=== PATIENT | male | born 1965 | race Caucasian/White ===

== ENCOUNTER 2019-01-16 20:01 | Inpatient (IN) | payer BC ==
[~2019-01-16] VITALS: Ht 188 cm; Wt 154.6 kg
[2019-01-16] MEDS ORDERED: methylPREDNISolone sod succ 125mg/2ml vial IV ONE (21:00)
[2019-01-16] MEDS ORDERED: ipratropium/albuterol 3ml nebule NEB ONE (21:00)
[2019-01-16 21:07] LABS: BASOPHILS % (AUTO) 0.5 % (0-1); EOSINOPHILS # (AUTO) 0.1 X10'3 (0-0.9); EOSINOPHILS % (AUTO) 2.8 % (0-6); HEMATOCRIT 49.3 % (42.0-52.0); HEMOGLOBIN 16.7 g/dl (14.0-17.9); LYMPHOCYTES # (AUTO) 1.1 X10'3 (1.1-4.8); LYMPHOCYTES % (AUTO) 21.7 % (21-51); MEAN CORPUSCULAR HEMOGLOBIN 31.8 PG (27.0-31.0); MEAN CORPUSCULAR HGB CONC 33.9 g/dL (33.0-36.5); MEAN CORPUSCULAR VOLUME 93.7 FL (78-98); MONOCYTES # (AUTO) 0.9 X10'3 (0-0.9); MONOCYTES % (AUTO) 17.5 % (2-12); NEUTROPHILS # (AUTO) 2.9 X10'3 (1.8-7.7); NEUTROPHILS % (AUTO) 57.5 % (42-75); PLATELET COUNT 178 X10'3 (140-440); RED BLOOD COUNT 5.26 X10'6 (4.70-6.10); RED CELL DISTRIBUTION WIDTH 13.3 % (11.5-14.5); WHITE BLOOD COUNT 5.1 X10'3 (4.5-11.0)
[2019-01-16 21:18] LABS: ALANINE AMINOTRANSFERASE 28 U/L (12-78); ALBUMIN 3.6 G/DL (3.4-5.0); ALBUMIN/GLOBULIN RATIO 0.9 (1.1-1.5); ALKALINE PHOSPHATASE 110 IU/L (46-116); ANION GAP 7 (8-16); ASPARTATE AMINO TRANSFERASE 27 U/L (10-37); BILIRUBIN,TOTAL 0.4 MG/DL (0.1-1.0); BLOOD UREA NITROGEN 15 MG/DL (7-18); BUN/CREATININE RATIO 13.9 (5.4-32.0); CALCIUM 8.8 MG/DL (8.5-10.1); CHLORIDE 105 MMOL/L (99-107); CREATININE 1.08 MG/DL (0.60-1.10); GLUCOSE 134 MG/DL (70-104); POTASSIUM 4.1 MMOL/L (3.5-5.1); SODIUM 140 MMOL/L (135-145); TOTAL CARBON DIOXIDE 28.5 MMOL/L (24-32); TOTAL PROTEIN 7.7 G/DL (6.4-8.2); eGFR 71 ML/MIN
[2019-01-16 21:22] LABS: TROPONIN I < 0.04 NG/ML (0.0-0.05)
[2019-01-16 21:25] LABS: PARTIAL THROMBOPLASTIN TIME 33 SECONDS (22-32); PROTHROMBIN TIME 10.3 SECONDS (9.0-12.0)
--- NOTE | 2019-01-16 21:30 | NUR ---
S/P neb treatment and he sounds clear. He is conversing easily now.
[2019-01-16] MEDS ORDERED: METF500T PO (21:58)
[2019-01-16] MEDS ORDERED: THYR240T PO (21:58)
[2019-01-16] MEDS ORDERED: GLIP5TAB13 PO (21:58)
[2019-01-16] MEDS ORDERED: LISI-604 PO (22:00)
[2019-01-16] MEDS ORDERED: ALBU8.5H8 INH (22:00)
[2019-01-16] MEDS ORDERED: magnesium Cl slow-release 64mg tablet PO PRN (22:30)
[2019-01-16] MEDS ORDERED: magnesium hydroxide 30ml (MOM) UD suspension PO PRN (22:30)
[2019-01-16] MEDS ORDERED: dextrose ORAL solution 15 GM/59 ML bottle PO PRN ×2 (22:30)
[2019-01-16] MEDS ORDERED: glucagon, human recombinant 1mg kit SUBCUT PRN (22:30)
[2019-01-16] MEDS ORDERED: ondansetron/PF 4mg/2ml inj IV PRN (22:30)
[2019-01-16] MEDS ORDERED: magnesium 4gm in 100ml NS 100 ML IV PRN (22:30)
[2019-01-16] MEDS ORDERED: dextrose 50%-water 50ml dispensing syringe IV PRN ×2 (22:30)
[2019-01-16] MEDS ORDERED: acetaminophen 325mg tablet PO PRN ×2 (22:30)
[2019-01-16] MEDS ORDERED: magnesium 2GM in 50ml NS 50 ML IV PRN (22:30)
[2019-01-16] MEDS ORDERED: mag hydrox/Alum hydrox/simeth 30ml oral suspension PO PRN (22:30)
[2019-01-16] MEDS ORDERED: potassium Cl 40MEQ/NS 500ml 500 ML IV PRN ×2 (22:30)
[2019-01-16] MEDS ORDERED: MESSAGE TO PHARMACY PO ONE (22:30)
[2019-01-16] MEDS ORDERED: potassium Cl 20 mEq SR tablet PO PRN ×2 (22:30)
[2019-01-16] MEDS ORDERED: ipratropium/albuterol 3ml nebule NEB PRN (22:30)
[2019-01-16 23:15] LABS: HEMOGLOBIN A1C 6.3 % (4.5-6.2)
[2019-01-16] MEDS: ipratropium/albuterol 3ml nebule NEB SCH (23:44)
[2019-01-17] MEDS: methylPREDNISolone sod succ/PF 40mg inj. IV SCH ×2 (00:09→08:32)
--- NOTE | 2019-01-17 00:09 | NUR ---
I gave the pt food to eat and now he is up to the br.
[2019-01-17 00:51] LABS: CLARITY,URINE CLEAR (Clear); COLOR,URINE YELLOW (Yellow); GLUCOSE, URINE NEGATIVE (Neg); KETONES,URINE TRACE mg/dl (Neg); LEUKOCYTE ESTERASE ,URINE NEGATIVE (Neg); NITRITES, URINE NEGATIVE (Neg); OCCULT BLOOD,URINE SMALL (Neg); PROTEIN,URINE 100 mg/dl (Neg); UA COLLECTION TYPE VOIDED
[2019-01-17 01:01] LABS: BACTERIA,URINE FEW /HPF (Neg); SQUAMOUS EPITHELIAL CELL,UR FEW /LPF (FEW); WBC,URINE 0-4 /HPF (0-4)
--- NOTE | 2019-01-17 02:18 | NUR ---
pt has been moved from rm9 to rm 12 - he desires to rest. lights dimmed, curtain drawn and door ajar. pt has call light in reach. verbalized understanding of use of call light
--- NOTE | 2019-01-17 04:00 | NUR ---
pt continues to rest at this time
[2019-01-17] MEDS: ipratropium/albuterol 3ml nebule NEB SCH ×6 (04:27→23:28)
--- NOTE | 2019-01-17 04:50 | NUR ---
PT AWAKE, CONVERSING WITH RT - NO NEEDS AT THIS TIME. VITALS UPDATED. NO ACUTE DISTRESS NOTED.
--- NOTE | 2019-01-17 07:12 | NUR ---
Patient in room ED 9. I have received report from Sabina RN and had the opportunity to ask questions and assume patient care.
[2019-01-17 07:50] VITALS: BP 140/83
[2019-01-17] MEDS ORDERED: azithromycin/NS 500mg/250ml 250 ML IV SCH (08:00)
[2019-01-17] MEDS: K and/or MAG REPLACEMENT MC SCH (08:00)
[2019-01-17] MEDS: enoxaparin 40mg/0.4ml syringe SQ SCH (08:00)
[2019-01-17] MEDS: thyroid, pork 30mg tablet PO SCH (08:32)
[2019-01-17] MEDS: lisinopril 5mg tablet PO SCH ×2 (08:32→09:35)
[2019-01-17] MEDS ORDERED: GLIM2TAB2 PO (10:11)
[2019-01-17] MEDS ORDERED: GUSE100S SUBCUT (10:11)
[2019-01-17] MEDS ORDERED: BENZ200C59 PO (10:11)
[2019-01-17] MEDS ORDERED: METF-438 PO (10:11)
[2019-01-17] MEDS ORDERED: AZIT-21 PO (10:11)
[2019-01-17] MEDS ORDERED: ALBU17AE26 INH (10:11)
--- NOTE | 2019-01-17 10:53 | NUR ---
Insulin never received from pharmacy, message was sent earlier. Pharmacy to bring up. Will recheck BS for lunch, unable to cover morning BS due to not having humalog available in time.
[2019-01-17 11:22] LABS: BASOPHILS % (AUTO) 0.3 % (0-1); EOSINOPHILS % (AUTO) 0 % (0-6); HEMATOCRIT 46.9 % (42.0-52.0); HEMOGLOBIN 16.1 g/dl (14.0-17.9); LYMPHOCYTES # (AUTO) 0.5 X10'3 (1.1-4.8); LYMPHOCYTES % (AUTO) 8.5 % (21-51); MEAN CORPUSCULAR HEMOGLOBIN 32.1 PG (27.0-31.0); MEAN CORPUSCULAR HGB CONC 34.4 g/dL (33.0-36.5); MEAN CORPUSCULAR VOLUME 93.3 FL (78-98); MEAN PLATELET VOLUME 7.9 FL (7.4-10.4); MONOCYTES # (AUTO) 0.2 X10'3 (0-0.9); MONOCYTES % (AUTO) 2.5 % (2-12); NEUTROPHILS # (AUTO) 5.4 X10'3 (1.8-7.7); NEUTROPHILS % (AUTO) 88.7 % (42-75); PLATELET COUNT 173 X10'3 (140-440); RED BLOOD COUNT 5.03 X10'6 (4.70-6.10); RED CELL DISTRIBUTION WIDTH 13.1 % (11.5-14.5); WHITE BLOOD COUNT 6.1 X10'3 (4.5-11.0)
[2019-01-17 11:32] LABS: ALBUMIN 3.4 G/DL (3.4-5.0); ANION GAP 11 (8-16); BLOOD UREA NITROGEN 21 MG/DL (7-18); BUN/CREATININE RATIO 17.1 (5.4-32.0); CALCIUM 8.5 MG/DL (8.5-10.1); CHLORIDE 103 MMOL/L (99-107); CREATININE 1.23 MG/DL (0.60-1.10); GLUCOSE 282 MG/DL (70-104); MAGNESIUM 2.1 MG/DL (1.5-2.4); POTASSIUM 4.4 MMOL/L (3.5-5.1); SODIUM 139 MMOL/L (135-145); TOTAL CARBON DIOXIDE 24.9 MMOL/L (24-32); eGFR 61 ML/MIN
[2019-01-17] MEDS ORDERED: predniSONE 20 mg tablet PO ONE (11:36)
[2019-01-17 11:54] VITALS: BP 138/82
[2019-01-17] MEDS: insulin Lispro (HumaLOG) vial - multi-dose SQ SCH ×3 (13:17→23:28)
--- NOTE | 2019-01-17 18:22 | NUR ---
Problems reprioritized. Patient report given, questions answered & plan of care reviewed with Pat RN.
[2019-01-17 19:00] VITALS: BP 119/67
--- NOTE | 2019-01-17 19:00 | NUR ---
pt obese; denies edema Addendum: 01/18/19 at 0305 by Juli Seaman RN Amended: Links added.
[2019-01-17] MEDS ORDERED: insulin glargine (Lantus) pen - multi-dose SQ SCH (21:00)
[2019-01-18] VITALS: BP 129/59
[2019-01-18] MEDS: ipratropium/albuterol 3ml nebule NEB SCH ×2 (03:11→07:39)
[2019-01-18 05:55] LABS: BASOPHILS % (AUTO) 0.1 % (0-1); EOSINOPHILS % (AUTO) 0 % (0-6); HEMATOCRIT 43.7 % (42.0-52.0); HEMOGLOBIN 14.9 g/dl (14.0-17.9); LYMPHOCYTES # (AUTO) 1.1 X10'3 (1.1-4.8); LYMPHOCYTES % (AUTO) 13.2 % (21-51); MEAN CORPUSCULAR HGB CONC 34.2 g/dL (33.0-36.5); MEAN CORPUSCULAR VOLUME 93.4 FL (78-98); MEAN PLATELET VOLUME 8.5 FL (7.4-10.4); MONOCYTES # (AUTO) 0.8 X10'3 (0-0.9); MONOCYTES % (AUTO) 9.7 % (2-12); NEUTROPHILS # (AUTO) 6.4 X10'3 (1.8-7.7); PLATELET COUNT 168 X10'3 (140-440); RED BLOOD COUNT 4.67 X10'6 (4.70-6.10); RED CELL DISTRIBUTION WIDTH 13.1 % (11.5-14.5); WHITE BLOOD COUNT 8.3 X10'3 (4.5-11.0)
[2019-01-18 05:56] LABS: ALBUMIN 3.3 G/DL (3.4-5.0); ANION GAP 10 (8-16); BLOOD UREA NITROGEN 34 MG/DL (7-18); BUN/CREATININE RATIO 20.7 (5.4-32.0); CALCIUM 8.6 MG/DL (8.5-10.1); CHLORIDE 105 MMOL/L (99-107); CREATININE 1.64 MG/DL (0.60-1.10); GLUCOSE 214 MG/DL (70-104); MAGNESIUM 2.2 MG/DL (1.5-2.4); SODIUM 141 MMOL/L (135-145); TOTAL CARBON DIOXIDE 25.9 MMOL/L (24-32); eGFR 44 ML/MIN
--- NOTE | 2019-01-18 06:32 | NUR ---
Patient in room [facility]. I have received report from Pat RN and had the opportunity to ask questions and assume patient care.
[2019-01-18 07:13] VITALS: BP 131/74
[2019-01-18] MEDS: lisinopril 5mg tablet PO SCH (07:33)
[2019-01-18] MEDS: K and/or MAG REPLACEMENT MC SCH (07:33)
[2019-01-18] MEDS: thyroid, pork 30mg tablet PO SCH (07:33)
[2019-01-18] MEDS: enoxaparin 40mg/0.4ml syringe SQ SCH (07:33)
[2019-01-18] MEDS ORDERED: predniSONE 20 mg tablet PO SCH (08:00)
[2019-01-18] MEDS ORDERED: levoFLOXACIN-Levaquin 500mg/D5 100 ML IV SCH (08:00)
[2019-01-18] MEDS: insulin Lispro (HumaLOG) vial - multi-dose SQ SCH (08:34)
[2019-01-18 10:59] VITALS: BP 121/66
[2019-01-18] MEDS ORDERED: levoFLOXACIN 500mg tablet PO SCH (11:00)
[2019-01-18] MEDS ORDERED: PRED20TA PO (11:03)
[2019-01-18] MEDS ORDERED: VARE0.5T PO (11:03)
[2019-01-18] MEDS ORDERED: LEVO500T89 PO (11:03)
--- NOTE | 2019-01-18 11:36 | NUR ---
Patient discharge paperwork gone over with patient and signed. Patient understands to followup with PCP. Rx called in to [facility] [address]. Pt refused to have BS checked before discharge. Family to take pt home. Student walked pt to front lobby.
== END 2019-01-18 11:47 | disposition home or self-care (01) | DRG 202 ==
LOC: ER 20:02 → ED HOLD 22:29 → EDBEDREQ 01-17 05:02 → SUR 3N 01-17 07:18 → CMPBEDREQ 01-17 19:47
PROVIDERS: ADMIT Hospitalist; ATTEND Family Medicine
PROC: 5A09357 Assistance with Respiratory Ventilation, Less than 24 Consecutive Hours, Continuous Positive Airway Pressure (ICD-10-PCS; principal; 2019-01-17)
PROC: 5A09357 Assistance with Respiratory Ventilation, Less than 24 Consecutive Hours, Continuous Positive Airway Pressure (ICD-10-PCS; 2019-01-18)
DX: J20.9 Acute bronchitis, unspecified (principal); J44.1 Chronic obstructive pulmonary disease with (acute) exacerbation; J44.0 Chronic obstructive pulmonary disease with (acute) lower respiratory infection; I10 Essential (primary) hypertension; L40.9 Psoriasis, unspecified; M19.90 Unspecified osteoarthritis, unspecified site; G47.30 Sleep apnea, unspecified; E03.9 Hypothyroidism, unspecified; E11.9 Type 2 diabetes mellitus without complications; F17.200 Nicotine dependence, unspecified, uncomplicated; Z82.5 Family history of asthma and other chronic lower respiratory diseases; Z79.899 Other long term (current) drug therapy; Z79.84 Long term (current) use of oral hypoglycemic drugs; Z71.6 Tobacco abuse counseling
CPT/HCPCS: 36415; 71045; 80048; 80053; 81001; 82948; 83036; 83605; 83735; 84145; 84484; 85025; 85610; 85730; 87040; 87070; 93005; 94640; 94760; 99285; G0378; J0456; J1650; J1815; J2920; J2930; J7512

== ENCOUNTER 2019-02-19 08:26 | Inpatient (IN) | payer BC ==
[~2019-02-19] VITALS: Ht 188 cm; Wt 154.0 kg
[~2019-02-19 08:26] MED LIST: ALBU17AE26 INH; BENZ200C59 PO; GLIM2TAB2 PO; GUSE100S SUBCUT; LISI-604 PO; METF-438 PO; THYR240T PO; VARE0.5T PO
[2019-02-19] MEDS ORDERED: normal saline 1000ML IV soln IV ONE (09:30)
[2019-02-19 10:04] LABS: BASOPHILS % (AUTO) 0.2 % (0-1); EOSINOPHILS # (AUTO) 0.1 X10'3 (0-0.9); EOSINOPHILS % (AUTO) 0.8 % (0-6); HEMATOCRIT 43.6 % (42.0-52.0); HEMOGLOBIN 14.5 g/dl (14.0-17.9); LYMPHOCYTES # (AUTO) 1.1 X10'3 (1.1-4.8); LYMPHOCYTES % (AUTO) 7.4 % (21-51); MEAN CORPUSCULAR HEMOGLOBIN 31.4 PG (27.0-31.0); MEAN CORPUSCULAR HGB CONC 33.2 g/dL (33.0-36.5); MEAN CORPUSCULAR VOLUME 94.6 FL (78-98); MEAN PLATELET VOLUME 7.8 FL (7.4-10.4); MONOCYTES # (AUTO) 0.8 X10'3 (0-0.9); MONOCYTES % (AUTO) 5.2 % (2-12); NEUTROPHILS # (AUTO) 12.6 X10'3 (1.8-7.7); NEUTROPHILS % (AUTO) 86.4 % (42-75); PLATELET COUNT 167 X10'3 (140-440); RED BLOOD COUNT 4.61 X10'6 (4.70-6.10); RED CELL DISTRIBUTION WIDTH 13.4 % (11.5-14.5); WHITE BLOOD COUNT 14.6 X10'3 (4.5-11.0)
[2019-02-19 10:14] LABS: ALANINE AMINOTRANSFERASE 18 U/L (12-78); ALBUMIN 2.7 G/DL (3.4-5.0); ALBUMIN/GLOBULIN RATIO 0.8 (1.1-1.5); ALKALINE PHOSPHATASE 93 IU/L (46-116); ANION GAP 5 (8-16); ASPARTATE AMINO TRANSFERASE 8 U/L (10-37); BILIRUBIN,TOTAL 0.7 MG/DL (0.1-1.0); BLOOD UREA NITROGEN 19 MG/DL (7-18); BUN/CREATININE RATIO 14.3 (5.4-32.0); CALCIUM 8.2 MG/DL (8.5-10.1); CHLORIDE 100 MMOL/L (99-107); CREATININE 1.33 MG/DL (0.60-1.10); GLUCOSE 321 MG/DL (70-104); POTASSIUM 3.7 MMOL/L (3.5-5.1); SODIUM 134 MMOL/L (135-145); TOTAL CARBON DIOXIDE 29.1 MMOL/L (24-32); TOTAL PROTEIN 5.9 G/DL (6.4-8.2); eGFR 56 ML/MIN
[2019-02-19] MEDS ORDERED: morphine 4 MG/ML inj SYRINge IV ONE (10:15)
[2019-02-19] MEDS ORDERED: NAPR220T67 PO (10:34)
[2019-02-19] MEDS ORDERED: TRAZ-219 PO (10:34)
[2019-02-19] MEDS ORDERED: FAMO20TA8 PO (10:34)
[2019-02-19] MEDS ORDERED: DOXY-257 PO (10:34)
[2019-02-19] MEDS ORDERED: CLIN300C56 PO (10:34)
[2019-02-19] MEDS ORDERED: SULF-18 PO (10:35)
[2019-02-19] MEDS ORDERED: iohexol 300mg/ml 100ml inj. ONE (10:44)
[2019-02-19 10:50] LABS: CLARITY,URINE CLEAR (Clear); COLOR,URINE YELLOW (Yellow); GLUCOSE, URINE >=1000 mg/dl (Neg); KETONES,URINE TRACE mg/dl (Neg); LEUKOCYTE ESTERASE ,URINE NEGATIVE (Neg); NITRITES, URINE NEGATIVE (Neg); OCCULT BLOOD,URINE TRACE-INTACT (Neg); PROTEIN,URINE 100 mg/dl (Neg)
[2019-02-19 10:51] LABS: UA COLLECTION TYPE VOIDED
[2019-02-19 10:55] LABS: HYALINE CASTS 0-3 /LPF (NEGATIVE); MUCUS STRANDS MODERATE /LPF (Neg); SQUAMOUS EPITHELIAL CELL,UR MODERATE /LPF (FEW)
[2019-02-19 11:02] LABS: TRANSITIONAL EPI CELLS,URINE FEW /HPF
[2019-02-19 11:03] LABS: RBC,URINE 0-2 /HPF (0-2); WBC,URINE 0-4 /HPF (0-4)
[2019-02-19 11:04] LABS: BACTERIA,URINE NONE SEEN /HPF (Neg)
[2019-02-19] MEDS ORDERED: piperacillin/tazo 3.375gm/50ml 50 ML IV ONE ×2 (12:10→13:00)
[2019-02-19] MEDS ORDERED: vancomycin/NS 1 GM ADD-VANTAGE 250 ML IV ONE (12:10)
[2019-02-19] MEDS ORDERED: potassium Cl 20 mEq SR tablet PO PRN ×2 (13:15)
[2019-02-19] MEDS ORDERED: ondansetron/PF 4mg/2ml inj IV PRN (13:15)
[2019-02-19] MEDS ORDERED: magnesium Cl slow-release 64mg tablet PO PRN (13:15)
[2019-02-19] MEDS ORDERED: glucagon, human recombinant 1mg kit SUBCUT PRN (13:15)
[2019-02-19] MEDS ORDERED: magnesium 4gm in 100ml NS 100 ML IV PRN (13:15)
[2019-02-19] MEDS ORDERED: MESSAGE TO PHARMACY PO ONE (13:15)
[2019-02-19] MEDS ORDERED: dextrose 50%-water 50ml dispensing syringe IV PRN ×2 (13:15)
[2019-02-19] MEDS ORDERED: acetaminophen 325mg tablet PO PRN ×2 (13:15)
[2019-02-19] MEDS ORDERED: potassium Cl 40MEQ/NS 500ml 500 ML IV PRN ×2 (13:15)
[2019-02-19] MEDS ORDERED: normal saline 1000ml 1,000 ML IV ONE (13:15)
[2019-02-19] MEDS ORDERED: magnesium 2GM in 50ml NS 50 ML IV PRN (13:15)
[2019-02-19] MEDS ORDERED: HYDROcodone/acetaminophen 5mg/325mg tablet PO PRN (13:15)
[2019-02-19] MEDS ORDERED: dextrose ORAL solution 15 GM/59 ML bottle PO PRN ×2 (13:15)
[2019-02-19] MEDS ORDERED: morphine 4 MG/ML inj SYRINge IV PRN (13:15)
[2019-02-19] MEDS ORDERED: morphine 4 MG/ML inj SYRINge IM ONE (13:35)
[2019-02-19] MEDS: piperacillin/tazo 3.375gm/50ml 50 ML IV SCH ×2 (16:43→20:03)
[2019-02-19] MEDS ORDERED: naproxen sodium 220mg tablet PO PRN (18:30)
[2019-02-19] MEDS ORDERED: CLIN150C2 PO (19:40)
[2019-02-19] MEDS ORDERED: GLIM2TAB2 PO (19:43)
[2019-02-19] MEDS ORDERED: METF-438 PO (19:45)
--- NOTE | 2019-02-19 19:52 | NUR ---
PATIENT NOT DUE FOR TREMFYA INJECTION TILL NEXT MONTH
[2019-02-19] MEDS: varenicline tartrate 0.5mg tablet PO SCH (20:00)
[2019-02-19] MEDS: lactobacillus rhamnosus 10,000 MMU CELLS/CAPSULE PO SCH (20:00)
[2019-02-19] MEDS: benzonatate 100mg capsule PO SCH (20:03)
[2019-02-19] MEDS: famotidine 20mg tablet PO SCH (20:04)
--- NOTE | 2019-02-19 20:12 | NUR ---
patient moved to room 11 from room 17 with all belongings; friend leslie took his medications home
[2019-02-19] MEDS: HYDROcodone/acetaminophen 10/325mg tab PO PRN (20:22)
[2019-02-19] MEDS: insulin glargine (Lantus) pen - multi-dose SQ SCH (20:57)
--- NOTE | 2019-02-19 23:00 | NUR ---
Received report from Rufino in the ED. Pt arrived on the unit at 2300 by wheelchair, connected to his IV with Vanco running. Pt was placed on contact isolation due to history of MRSA, necrotizing fascitis and gangrene. Pt was darted, swabbed, meds reconciled and assisted with hooking up his CPAP machine. Pt has no signs of distress, will continue to monitor.
[2019-02-19] MEDS: mag hydrox/Alum hydrox/simeth 30ml oral suspension PO PRN (23:32)
[2019-02-20] VITALS (12 sets, daily range): BP systolic 107–155; BP diastolic 52–83
[2019-02-20] MEDS: HYDROcodone/acetaminophen 10/325mg tab PO PRN ×4 (00:06→19:59)
[2019-02-20 06:01] LABS: BASOPHILS # (AUTO) 0.1 X10'3 (0-0.2); BASOPHILS % (AUTO) 0.4 % (0-1); EOSINOPHILS # (AUTO) 0.2 X10'3 (0-0.9); EOSINOPHILS % (AUTO) 0.9 % (0-6); HEMATOCRIT 38.2 % (42.0-52.0); HEMOGLOBIN 12.9 g/dl (14.0-17.9); LYMPHOCYTES # (AUTO) 0.9 X10'3 (1.1-4.8); LYMPHOCYTES % (AUTO) 5.2 % (21-51); MEAN CORPUSCULAR HEMOGLOBIN 31.9 PG (27.0-31.0); MEAN CORPUSCULAR HGB CONC 33.8 g/dL (33.0-36.5); MEAN CORPUSCULAR VOLUME 94.2 FL (78-98); MEAN PLATELET VOLUME 7.9 FL (7.4-10.4); MONOCYTES # (AUTO) 0.8 X10'3 (0-0.9); MONOCYTES % (AUTO) 4.6 % (2-12); NEUTROPHILS # (AUTO) 14.7 X10'3 (1.8-7.7); NEUTROPHILS % (AUTO) 88.9 % (42-75); PLATELET COUNT 145 X10'3 (140-440); RED BLOOD COUNT 4.06 X10'6 (4.70-6.10); RED CELL DISTRIBUTION WIDTH 13.2 % (11.5-14.5); WHITE BLOOD COUNT 16.5 X10'3 (4.5-11.0)
[2019-02-20 06:12] LABS: ALBUMIN 2.1 G/DL (3.4-5.0); ANION GAP 7 (8-16); BLOOD UREA NITROGEN 16 MG/DL (7-18); BUN/CREATININE RATIO 13.9 (5.4-32.0); CALCIUM 7.8 MG/DL (8.5-10.1); CHLORIDE 103 MMOL/L (99-107); CREATININE 1.15 MG/DL (0.60-1.10); GLUCOSE 293 MG/DL (70-104); MAGNESIUM 1.5 MG/DL (1.5-2.4); POTASSIUM 3.7 MMOL/L (3.5-5.1); SODIUM 137 MMOL/L (135-145); TOTAL CARBON DIOXIDE 26.9 MMOL/L (24-32); eGFR 66 ML/MIN
--- NOTE | 2019-02-20 06:28 | NUR ---
Problems reprioritized. Patient report given, questions answered & plan of care reviewed with Tiffanie MCNEAL.
--- NOTE | 2019-02-20 06:30 | NUR ---
Patient in room [facility]. I have received report from FREDIS Beach and had the opportunity to ask questions and assume patient care. patient resting comfortably at this time. Call light and items of frequent use in reach of patient.
[2019-02-20] MEDS ORDERED: glimepiride 1 MG tablet PO SCH (07:30)
[2019-02-20] MEDS: K and/or MAG REPLACEMENT MC SCH (08:00)
[2019-02-20] MEDS: varenicline tartrate 0.5mg tablet PO SCH ×2 (08:00→22:12)
[2019-02-20] MEDS: enoxaparin 40mg/0.4ml syringe SQ SCH (08:00)
[2019-02-20] MEDS: piperacillin/tazo 3.375gm/50ml 50 ML IV SCH ×2 (08:58→16:16)
[2019-02-20] MEDS: lactobacillus rhamnosus 10,000 MMU CELLS/CAPSULE PO SCH ×2 (09:05→22:12)
[2019-02-20] MEDS: benzonatate 100mg capsule PO SCH ×3 (09:06→21:00)
[2019-02-20] MEDS: famotidine 20mg tablet PO SCH ×2 (09:06→22:12)
[2019-02-20] MEDS: thyroid, pork 30mg tablet PO SCH (09:08)
[2019-02-20] MEDS: lisinopril 5mg tablet PO SCH (09:11)
[2019-02-20] MEDS: insulin Lispro (HumaLOG) vial - multi-dose SQ SCH ×3 (11:00→21:56)
--- NOTE | 2019-02-20 11:00 | NUR ---
0700 blood sugar not covered. Unable to get Humalog from pharmacy in time to cover patient. Will reassess sugar at 1200 and cover at that time.
[2019-02-20] MEDS ORDERED: VANCOMYCIN LEVEL IV ONE (12:30)
[2019-02-20] MEDS ORDERED: ringers solution, lacted 1,000 ML IV ONE (16:25)
--- NOTE | 2019-02-20 17:30 | NUR ---
Patient to OR. Patient alert and oriented at this time.
[2019-02-20] MEDS ORDERED: ringers solution, lacted 1,000 ML IV SCH (17:34)
[2019-02-20] MEDS ORDERED: ondansetron/PF 4mg/2ml inj IV PRN ×2 (17:35→18:50)
[2019-02-20] MEDS ORDERED: labetalol 20mg/4ml (5mg/ml) syringe IV PRN (17:35)
[2019-02-20] MEDS ORDERED: hydrALAZINE 20mg/ml inj. IV PRN (17:35)
[2019-02-20] MEDS ORDERED: fentaNYL/PF 50MCG/1 ML 2ML syringe IV PRN ×2 (17:35)
[2019-02-20] MEDS ORDERED: morphine 4 MG/ML inj SYRINge IV PRN ×2 (17:35)
[2019-02-20] MEDS ORDERED: LIDOcaine 1%/PF 5ML 10 MG/ML VIAL ONE ×2 (17:40)
[2019-02-20] MEDS ORDERED: succinylcholine 20mg/ml inj IV ONE (17:40)
[2019-02-20] MEDS ORDERED: sevoflurane 250ml liquid IH ONE (17:40)
[2019-02-20] MEDS ORDERED: fentaNYL/PF 50MCG/1 ML 2ML syringe ONE (17:43)
[2019-02-20] MEDS ORDERED: midazolam 2 mg/2 ml injection ONE (17:43)
[2019-02-20] MEDS ORDERED: propofol inj 20 ML IV ONE ×2 (17:44)
[2019-02-20] MEDS ORDERED: ondansetron/PF 4mg/2ml inj ONE (17:47)
[2019-02-20] MEDS ORDERED: metoclopramide 5 mg/ml inj ONE (17:47)
[2019-02-20 17:56] LABS: INR 1.1 INR; PROTHROMBIN TIME 10.8 SECONDS (9.0-12.0)
--- NOTE | 2019-02-20 18:40 | NUR ---
Problems reprioritized. Patient report given, questions answered & plan of care reviewed with FREDIS Beach. Patient in the OR at this time.
--- NOTE | 2019-02-20 18:41 | NUR ---
Patient in room [facility]. I have received report from Tiffanie MCNEAL and had the opportunity to ask questions and assume patient care.
--- NOTE | 2019-02-20 18:50 | NUR ---
Received from OR via bed, accompanied by Anesthesiologist. Report received. Initial physical assessment done and recorded.
--- NOTE | 2019-02-20 19:50 | NUR ---
Discharge criteria met, report to receiving floor. Transferred to room in stable condition.
--- NOTE | 2019-02-20 19:55 | NUR ---
Received report from Chelsi in recovery. Pt VSS, A/O, no N/V, minimal blood loss (<50 cc). Pt arrived back on the unit floor in stable condition with LR running at 50ml/hr. No signs of distress, will continue to monitor.
[2019-02-20] MEDS: insulin glargine (Lantus) pen - multi-dose SQ SCH (21:58)
[2019-02-20] MEDS: morphine 4 MG/ML inj SYRINge IV PRN (22:00)
[2019-02-21] VITALS: BP 109/66
[2019-02-21] MEDS: HYDROcodone/acetaminophen 10/325mg tab PO PRN ×3 (01:02→23:07)
[2019-02-21] MEDS: piperacillin/tazo 3.375gm/50ml 50 ML IV SCH ×3 (02:28→17:51)
[2019-02-21] MEDS: mag hydrox/Alum hydrox/simeth 30ml oral suspension PO PRN (05:16)
[2019-02-21 05:48] LABS: BASOPHILS % (AUTO) 0.1 % (0-1); EOSINOPHILS # (AUTO) 0.3 X10'3 (0-0.9); EOSINOPHILS % (AUTO) 2.1 % (0-6); HEMATOCRIT 37.5 % (42.0-52.0); HEMOGLOBIN 12.7 g/dl (14.0-17.9); LYMPHOCYTES % (AUTO) 6.9 % (21-51); MEAN CORPUSCULAR HEMOGLOBIN 31.9 PG (27.0-31.0); MEAN CORPUSCULAR HGB CONC 33.9 g/dL (33.0-36.5); MEAN CORPUSCULAR VOLUME 94.3 FL (78-98); MONOCYTES # (AUTO) 0.9 X10'3 (0-0.9); MONOCYTES % (AUTO) 5.9 % (2-12); NEUTROPHILS # (AUTO) 12.4 X10'3 (1.8-7.7); PLATELET COUNT 154 X10'3 (140-440); RED BLOOD COUNT 3.98 X10'6 (4.70-6.10); RED CELL DISTRIBUTION WIDTH 13.7 % (11.5-14.5); WHITE BLOOD COUNT 14.6 X10'3 (4.5-11.0)
[2019-02-21 05:59] LABS: ALBUMIN 1.9 G/DL (3.4-5.0); ANION GAP 4 (8-16); BLOOD UREA NITROGEN 15 MG/DL (7-18); BUN/CREATININE RATIO 11.8 (5.4-32.0); CALCIUM 7.7 MG/DL (8.5-10.1); CHLORIDE 103 MMOL/L (99-107); CREATININE 1.27 MG/DL (0.60-1.10); GLUCOSE 224 MG/DL (70-104); MAGNESIUM 1.6 MG/DL (1.5-2.4); POTASSIUM 3.8 MMOL/L (3.5-5.1); SODIUM 135 MMOL/L (135-145); TOTAL CARBON DIOXIDE 27.9 MMOL/L (24-32); eGFR 59 ML/MIN
--- NOTE | 2019-02-21 06:49 | NUR ---
Problems reprioritized. Patient report given, questions answered & plan of care reviewed with Shari MCNEAL.
[2019-02-21 07:40] VITALS: BP 130/70
[2019-02-21] MEDS: K and/or MAG REPLACEMENT MC SCH (08:00)
[2019-02-21] MEDS: enoxaparin 40mg/0.4ml syringe SQ SCH (08:00)
[2019-02-21] MEDS: lisinopril 5mg tablet PO SCH (08:14)
[2019-02-21] MEDS: varenicline tartrate 0.5mg tablet PO SCH ×2 (08:14→23:07)
[2019-02-21] MEDS: famotidine 20mg tablet PO SCH ×2 (08:14→23:07)
[2019-02-21] MEDS: benzonatate 100mg capsule PO SCH ×3 (08:14→23:06)
[2019-02-21] MEDS: thyroid, pork 30mg tablet PO SCH (08:14)
[2019-02-21] MEDS: lactobacillus rhamnosus 10,000 MMU CELLS/CAPSULE PO SCH ×2 (08:14→23:07)
[2019-02-21] MEDS: insulin Lispro (HumaLOG) vial - multi-dose SQ SCH ×3 (08:25→19:25)
[2019-02-21 11:00] VITALS: BP 120/69
[2019-02-21] MEDS: morphine 4 MG/ML inj SYRINge IV PRN (15:43)
[2019-02-21] MEDS: aspirin 81mg tab.chew PO SCH (15:57)
[2019-02-21] MEDS ORDERED: morphine 2 MG/ML inj. syringe IV ONE (16:25)
--- NOTE | 2019-02-21 18:26 | NUR ---
Problems reprioritized. Patient report given, questions answered & plan of care reviewed with FREDIS Shields.
[2019-02-21 20:00] VITALS: BP 133/77
--- NOTE | 2019-02-21 22:00 | NUR ---
Patient did not want a sitz bath tonight. Patient instead wanted a shower. Patient stated while he was in the shower he did a good job in letting the run down the right surgical site. States he will not want a sitz bath, instead he will shower 3x a day.
[2019-02-21] MEDS: insulin glargine (Lantus) pen - multi-dose SQ SCH (23:22)
[2019-02-22] VITALS: BP 136/31
[2019-02-22] MEDS: piperacillin/tazo 3.375gm/50ml 50 ML IV SCH ×3 (01:40→16:00)
[2019-02-22] MEDS: morphine 2 MG/ML inj. syringe IV PRN ×3 (01:50→22:36)
[2019-02-22] MEDS: mag hydrox/Alum hydrox/simeth 30ml oral suspension PO PRN ×2 (01:50→16:00)
[2019-02-22 04:32] LABS: BASOPHILS % (AUTO) 0.2 % (0-1); EOSINOPHILS # (AUTO) 0.2 X10'3 (0-0.9); EOSINOPHILS % (AUTO) 1.6 % (0-6); HEMATOCRIT 40.8 % (42.0-52.0); LYMPHOCYTES # (AUTO) 0.8 X10'3 (1.1-4.8); LYMPHOCYTES % (AUTO) 7.1 % (21-51); MEAN CORPUSCULAR HEMOGLOBIN 32.4 PG (27.0-31.0); MEAN CORPUSCULAR HGB CONC 34.4 g/dL (33.0-36.5); MEAN CORPUSCULAR VOLUME 94.1 FL (78-98); MONOCYTES # (AUTO) 0.8 X10'3 (0-0.9); MONOCYTES % (AUTO) 7.5 % (2-12); NEUTROPHILS % (AUTO) 83.6 % (42-75); PLATELET COUNT 163 X10'3 (140-440); RED BLOOD COUNT 4.33 X10'6 (4.70-6.10); RED CELL DISTRIBUTION WIDTH 13.7 % (11.5-14.5); WHITE BLOOD COUNT 10.8 X10'3 (4.5-11.0)
[2019-02-22 04:43] LABS: ALBUMIN 1.8 G/DL (3.4-5.0); ANION GAP 6 (8-16); BLOOD UREA NITROGEN 15 MG/DL (7-18); BUN/CREATININE RATIO 10.5 (5.4-32.0); CHLORIDE 105 MMOL/L (99-107); CREATININE 1.43 MG/DL (0.60-1.10); GLUCOSE 231 MG/DL (70-104); MAGNESIUM 1.9 MG/DL (1.5-2.4); POTASSIUM 3.8 MMOL/L (3.5-5.1); SODIUM 139 MMOL/L (135-145); TOTAL CARBON DIOXIDE 28.4 MMOL/L (24-32); eGFR 51 ML/MIN
[2019-02-22 07:15] VITALS: BP 124/69
[2019-02-22] MEDS: K and/or MAG REPLACEMENT MC SCH (08:00)
[2019-02-22] MEDS: enoxaparin 40mg/0.4ml syringe SQ SCH (08:00)
[2019-02-22] MEDS: thyroid, pork 30mg tablet PO SCH (08:13)
[2019-02-22] MEDS: famotidine 20mg tablet PO SCH ×2 (08:14→19:56)
[2019-02-22] MEDS: benzonatate 100mg capsule PO SCH ×3 (08:14→21:34)
[2019-02-22] MEDS: aspirin 81mg tab.chew PO SCH (08:14)
[2019-02-22] MEDS: lisinopril 5mg tablet PO SCH (08:14)
[2019-02-22] MEDS: lactobacillus rhamnosus 10,000 MMU CELLS/CAPSULE PO SCH ×2 (08:14→19:55)
[2019-02-22] MEDS: varenicline tartrate 0.5mg tablet PO SCH ×2 (08:14→19:56)
[2019-02-22] MEDS: insulin Lispro (HumaLOG) vial - multi-dose SQ SCH ×3 (08:19→19:19)
[2019-02-22] MEDS: HYDROcodone/acetaminophen 10/325mg tab PO PRN ×2 (08:21→22:53)
[2019-02-22 12:00] VITALS: BP 123/72
[2019-02-22] MEDS: magnesium hydroxide 30ml (MOM) UD suspension PO PRN (12:06)
--- NOTE | 2019-02-22 18:28 | NUR ---
Problems reprioritized. Patient report given, questions answered & plan of care reviewed with FREDIS Rodrigues.
--- NOTE | 2019-02-22 18:34 | NUR ---
Patient in room [facility]. I have received report from FREDIS Darden and had the opportunity to ask questions and assume patient care. Addendum: 02/22/19 at 1834 by Zonia Singh RN Amended: Links added.
[2019-02-22 20:00] VITALS: BP 125/63
[2019-02-22] MEDS: insulin glargine (Lantus) pen - multi-dose SQ SCH (21:51)
[2019-02-23] VITALS: BP 131/66
[2019-02-23] MEDS: piperacillin/tazo 3.375gm/50ml 50 ML IV SCH ×4 (00:41→23:51)
[2019-02-23 04:48] LABS: BASOPHILS # (AUTO) 0.1 X10'3 (0-0.2); BASOPHILS % (AUTO) 0.7 % (0-1); EOSINOPHILS # (AUTO) 0.2 X10'3 (0-0.9); EOSINOPHILS % (AUTO) 2.1 % (0-6); HEMATOCRIT 35.2 % (42.0-52.0); LYMPHOCYTES # (AUTO) 1.2 X10'3 (1.1-4.8); LYMPHOCYTES % (AUTO) 11.6 % (21-51); MEAN CORPUSCULAR HEMOGLOBIN 32.1 PG (27.0-31.0); MEAN CORPUSCULAR VOLUME 94.4 FL (78-98); MEAN PLATELET VOLUME 7.9 FL (7.4-10.4); MONOCYTES # (AUTO) 1.1 X10'3 (0-0.9); MONOCYTES % (AUTO) 10.9 % (2-12); NEUTROPHILS # (AUTO) 7.6 X10'3 (1.8-7.7); NEUTROPHILS % (AUTO) 74.7 % (42-75); PLATELET COUNT 201 X10'3 (140-440); RED BLOOD COUNT 3.72 X10'6 (4.70-6.10); RED CELL DISTRIBUTION WIDTH 13.6 % (11.5-14.5); WHITE BLOOD COUNT 10.1 X10'3 (4.5-11.0)
[2019-02-23 04:54] LABS: ALBUMIN 1.6 G/DL (3.4-5.0); ANION GAP 6 (8-16); BLOOD UREA NITROGEN 20 MG/DL (7-18); BUN/CREATININE RATIO 12.6 (5.4-32.0); CALCIUM 7.7 MG/DL (8.5-10.1); CHLORIDE 107 MMOL/L (99-107); CREATININE 1.59 MG/DL (0.60-1.10); GLUCOSE 188 MG/DL (70-104); MAGNESIUM 2.1 MG/DL (1.5-2.4); POTASSIUM 3.7 MMOL/L (3.5-5.1); SODIUM 140 MMOL/L (135-145); TOTAL CARBON DIOXIDE 27.2 MMOL/L (24-32); eGFR 45 ML/MIN
[2019-02-23] MEDS: HYDROcodone/acetaminophen 10/325mg tab PO PRN ×3 (05:26→21:49)
--- NOTE | 2019-02-23 07:10 | NUR ---
Problems reprioritized. Patient report given, questions answered & plan of care reviewed with FREDIS Osborn
--- NOTE | 2019-02-23 07:14 | NUR ---
Patient states that is IV is irritating him. IV site looks good no reddness, tenderness or swelling. Patient does not want his antibiotic running at this time and is requesting a PICC line. I advised patient that we just don't put PICC lines in patients. 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
[2019-02-23] MEDS: enoxaparin 40mg/0.4ml syringe SQ SCH (08:00)
[2019-02-23] MEDS: K and/or MAG REPLACEMENT MC SCH (08:00)
[2019-02-23 08:04] VITALS: BP 118/67
[2019-02-23] MEDS: aspirin 81mg tab.chew PO SCH (09:24)
[2019-02-23] MEDS: famotidine 20mg tablet PO SCH ×2 (09:24→21:48)
[2019-02-23] MEDS: lisinopril 5mg tablet PO SCH (09:24)
[2019-02-23] MEDS: lactobacillus rhamnosus 10,000 MMU CELLS/CAPSULE PO SCH ×2 (09:24→21:47)
[2019-02-23] MEDS: varenicline tartrate 0.5mg tablet PO SCH ×2 (09:24→21:47)
[2019-02-23] MEDS: benzonatate 100mg capsule PO SCH ×3 (09:25→21:48)
[2019-02-23] MEDS: magnesium hydroxide 30ml (MOM) UD suspension PO PRN (09:26)
[2019-02-23] MEDS: thyroid, pork 30mg tablet PO SCH (09:26)
--- NOTE | 2019-02-23 10:31 | NUR ---
Extended PIV inserted to the left upper arm cephalic vein using ultrasound. Mariaelena johnston. Addendum: 02/23/19 at 1033 by Lizy Rivera RN Amended: Links added.
[2019-02-23] MEDS: insulin Lispro (HumaLOG) vial - multi-dose SQ SCH ×3 (10:48→19:01)
[2019-02-23 11:00] VITALS: BP 141/75
--- NOTE | 2019-02-23 11:00 | NUR ---
Asked AMERICO Fragoso to get patient into a shower for me. Fouzia advised me patient already took a shower. I went in and asked patient who disconnected his IV, Patient stated that he disconnected his own IV . I asked him who got him in the shower, patient stated he did, then I asked him who hooked his IV back up and patient stated he did. I advised patient he can not do any of those things because he can cause an infection and he can't just get into any shower because he does not know it they are clean and he is an isolation patient and we have to clean the shower with special chemicals after he showers. Patient stated he will not touch it again.
[2019-02-23] MEDS ORDERED: HYDROcodone/acetaminophen 10/325mg tab PO PRN (11:15)
[2019-02-23] MEDS ORDERED: HYDROcodone/acetaminophen 5mg/325mg tablet PO PRN (11:15)
[2019-02-23 18:00] VITALS: BP 139/72
--- NOTE | 2019-02-23 18:26 | NUR ---
Problems reprioritized. Patient report given, questions answered & plan of care reviewed with Rylee Mcknight RN.
--- NOTE | 2019-02-23 18:27 | NUR ---
Patient in room [facility]. I have received report from FREDIS GARCIA and had the opportunity to ask questions and assume patient care. Addendum: 02/23/19 at 1828 by Zonia Singh RN Amended: Links added.
[2019-02-23] MEDS: polyethylene glycol 3350 17gm powd pack PO SCH (21:47)
[2019-02-23] MEDS: diatr meglu/diatrizoate 30ml oral sol.-(3 dose) bottle PO SCH (21:48)
[2019-02-23] MEDS: insulin glargine (Lantus) pen - multi-dose SQ SCH (22:03)
[2019-02-24] VITALS: BP 120/59
--- NOTE | 2019-02-24 06:39 | NUR ---
Patient in room [facility]. I have received report from virgil angelo rn and had the opportunity to ask questions and assume patient care.
[2019-02-24] MEDS: HYDROcodone/acetaminophen 10/325mg tab PO PRN ×3 (06:42→21:59)
--- NOTE | 2019-02-24 07:08 | NUR ---
Problems reprioritized. Patient report given, questions answered & plan of care reviewed with FREDIS Bravo..
[2019-02-24] MEDS: diatr meglu/diatrizoate 30ml oral sol.-(3 dose) bottle PO SCH ×2 (07:28→09:00)
[2019-02-24] MEDS: lisinopril 5mg tablet PO SCH (07:35)
[2019-02-24] MEDS: famotidine 20mg tablet PO SCH ×2 (07:35→20:13)
[2019-02-24] MEDS: benzonatate 100mg capsule PO SCH ×3 (07:35→21:33)
[2019-02-24] MEDS: lactobacillus rhamnosus 10,000 MMU CELLS/CAPSULE PO SCH ×2 (07:35→20:13)
[2019-02-24] MEDS: varenicline tartrate 0.5mg tablet PO SCH ×2 (07:35→20:13)
[2019-02-24] MEDS: piperacillin/tazo 3.375gm/50ml 50 ML IV SCH ×3 (07:36→23:26)
[2019-02-24] MEDS: thyroid, pork 30mg tablet PO SCH (07:36)
[2019-02-24] MEDS: K and/or MAG REPLACEMENT MC SCH (07:55)
[2019-02-24] MEDS: enoxaparin 40mg/0.4ml syringe SQ SCH (07:56)
[2019-02-24 08:00] VITALS: BP 138/73
[2019-02-24] MEDS: aspirin 81mg tab.chew PO SCH (09:48)
[2019-02-24] MEDS: linezolid 600mg/300ml PREMIX 300 ML IV SCH ×2 (09:48→20:14)
[2019-02-24 11:43] VITALS: BP 103/51
[2019-02-24] MEDS: insulin Lispro (HumaLOG) vial - multi-dose SQ SCH ×2 (13:19→19:23)
--- NOTE | 2019-02-24 18:09 | NUR ---
Problems reprioritized. Patient report given, questions answered & plan of care reviewed with virgil cisneros.
--- NOTE | 2019-02-24 18:24 | NUR ---
Patient in room [facility]. I have received report from FREDIS Bravo and had the opportunity to ask questions and assume patient care. Addendum: 02/24/19 at 1824 by Zonia Singh RN Amended: Links added.
--- NOTE | 2019-02-24 19:04 | NUR ---
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 S/p I&D R butt abscess w/ old L butt wound small opening per EMR. Passing gas w/ pt reported BM 02/24 per MD note. Advanced to carb controlled/heart healthy meals PO 100%. Given chronic wound and morbid obesity double proteins TIDWM added for additional healing needs given good PO; dietary notified. Will continue to monitor. Rec: 1. continue carb controlled/heart healthy diet 2. double proteins TIDWM 3. routine bowel care post-op 4. MVI for wounds 5. wt per rx Addendum: 02/24/19 at [address] Amended: Links added.
[2019-02-24 19:30] VITALS: BP 154/64
[2019-02-24 20:00] VITALS: BP 103/51
[2019-02-24] MEDS: polyethylene glycol 3350 17gm powd pack PO SCH ×2 (21:00→21:33)
[2019-02-24] MEDS: insulin glargine (Lantus) pen - multi-dose SQ SCH (21:42)
[2019-02-25] VITALS: BP 130/62
--- NOTE | 2019-02-25 06:37 | NUR ---
Problems reprioritized. Patient report given, questions answered & plan of care reviewed with FREDIS Delacruz. Addendum: 02/25/19 at 0637 by Zonia Singh RN Amended: Links added.
[2019-02-25] MEDS: HYDROcodone/acetaminophen 10/325mg tab PO PRN ×3 (07:05→23:31)
[2019-02-25] MEDS: linezolid 600mg/300ml PREMIX 300 ML IV SCH ×2 (07:05→20:55)
[2019-02-25 08:00] VITALS: BP 149/76
[2019-02-25] MEDS: enoxaparin 40mg/0.4ml syringe SQ SCH (08:00)
[2019-02-25] MEDS: K and/or MAG REPLACEMENT MC SCH (08:00)
[2019-02-25] MEDS: insulin Lispro (HumaLOG) vial - multi-dose SQ SCH ×3 (08:56→19:34)
[2019-02-25] MEDS: piperacillin/tazo 3.375gm/50ml 50 ML IV SCH ×2 (09:00→16:23)
[2019-02-25] MEDS: thyroid, pork 30mg tablet PO SCH (09:07)
[2019-02-25] MEDS: famotidine 20mg tablet PO SCH ×2 (09:08→20:55)
[2019-02-25] MEDS: aspirin 81mg tab.chew PO SCH (09:08)
[2019-02-25] MEDS: lactobacillus rhamnosus 10,000 MMU CELLS/CAPSULE PO SCH ×2 (09:08→20:55)
[2019-02-25] MEDS: lisinopril 5mg tablet PO SCH (09:09)
[2019-02-25] MEDS: benzonatate 100mg capsule PO SCH ×3 (09:10→20:55)
[2019-02-25] MEDS: varenicline tartrate 0.5mg tablet PO SCH ×2 (09:14→20:55)
[2019-02-25 11:00] VITALS: BP 143/75
[2019-02-25] MEDS: mag hydrox/Alum hydrox/simeth 30ml oral suspension PO PRN (12:00)
--- NOTE | 2019-02-25 18:08 | NUR ---
Problems reprioritized. Patient report given, questions answered & plan of care reviewed with VERA MCNEAL.
--- NOTE | 2019-02-25 19:12 | NUR ---
zyvox consult: Pt seen by FRANCISCO J for written/verbal zyvox ed w/ RD contact information provided. RD provided verbal high protein ed; encouraged high protein intake given infection. Pt declines additional proteins. Addendum: 02/25/19 at [address] Amended: Links added.
[2019-02-25 20:00] VITALS: BP 132/66
[2019-02-25] MEDS: polyethylene glycol 3350 17gm powd pack PO SCH (21:00)
[2019-02-25] MEDS: insulin glargine (Lantus) pen - multi-dose SQ SCH (21:12)
[2019-02-26] VITALS: BP 121/58
[2019-02-26] MEDS: piperacillin/tazo 3.375gm/50ml 50 ML IV SCH ×3 (00:44→16:55)
--- NOTE | 2019-02-26 06:46 | NUR ---
Patient in room [facility]. I have received report from jessica cisneros and had the opportunity to ask questions and assume patient care.
[2019-02-26] MEDS: thyroid, pork 30mg tablet PO SCH (06:53)
--- NOTE | 2019-02-26 06:56 | NUR ---
Problems reprioritized. Patient report given, questions answered & plan of care reviewed with Elizabeth MCNEAL.
[2019-02-26 07:00] VITALS: BP 149/72
[2019-02-26] MEDS: enoxaparin 40mg/0.4ml syringe SQ SCH (08:00)
[2019-02-26] MEDS: K and/or MAG REPLACEMENT MC SCH (08:00)
[2019-02-26] MEDS: linezolid 600mg/300ml PREMIX 300 ML IV SCH (08:23)
[2019-02-26] MEDS: varenicline tartrate 0.5mg tablet PO SCH ×2 (08:23→21:58)
[2019-02-26] MEDS: HYDROcodone/acetaminophen 10/325mg tab PO PRN ×2 (08:24→19:07)
[2019-02-26] MEDS: lactobacillus rhamnosus 10,000 MMU CELLS/CAPSULE PO SCH ×2 (08:25→21:59)
[2019-02-26] MEDS: aspirin 81mg tab.chew PO SCH (08:25)
[2019-02-26] MEDS: benzonatate 100mg capsule PO SCH ×3 (08:25→21:58)
[2019-02-26] MEDS: famotidine 20mg tablet PO SCH ×2 (08:25→21:58)
[2019-02-26] MEDS: lisinopril 5mg tablet PO SCH (08:25)
[2019-02-26] MEDS: magnesium hydroxide 30ml (MOM) UD suspension PO PRN (09:10)
[2019-02-26] MEDS: insulin Lispro (HumaLOG) vial - multi-dose SQ SCH ×2 (09:17→19:05)
[2019-02-26 11:00] VITALS: BP 124/69
--- NOTE | 2019-02-26 18:44 | NUR ---
Patient in room [facility]. I have received report from Elizabeth MCNEAL and had the opportunity to ask questions and assume patient care. Pt laying in bed watching tv. Just finished dinner. No signs of distress, will continue to monitor.
--- NOTE | 2019-02-26 18:48 | NUR ---
Problems reprioritized. Patient report given, questions answered & plan of care reviewed with jessica cisneros.
[2019-02-26 20:00] VITALS: BP 135/72
[2019-02-26] MEDS ORDERED: linezolid 600mg tablet PO SCH (20:00)
[2019-02-26] MEDS: insulin glargine (Lantus) pen - multi-dose SQ SCH (21:54)
[2019-02-26] MEDS: polyethylene glycol 3350 17gm powd pack PO SCH (21:55)
[2019-02-27] VITALS: BP 132/73
[2019-02-27] MEDS: piperacillin/tazo 3.375gm/50ml 50 ML IV SCH ×3 (00:43→16:21)
[2019-02-27] MEDS: HYDROcodone/acetaminophen 10/325mg tab PO PRN ×3 (00:45→19:30)
[2019-02-27 05:14] LABS: BASOPHILS # (AUTO) 0.1 X10'3 (0-0.2); BASOPHILS % (AUTO) 0.8 % (0-1); EOSINOPHILS # (AUTO) 0.2 X10'3 (0-0.9); EOSINOPHILS % (AUTO) 3.4 % (0-6); HEMATOCRIT 36.8 % (42.0-52.0); HEMOGLOBIN 12.3 g/dl (14.0-17.9); LYMPHOCYTES # (AUTO) 1.6 X10'3 (1.1-4.8); LYMPHOCYTES % (AUTO) 23.7 % (21-51); MEAN CORPUSCULAR HEMOGLOBIN 31.8 PG (27.0-31.0); MEAN CORPUSCULAR HGB CONC 33.4 g/dL (33.0-36.5); MEAN CORPUSCULAR VOLUME 95.2 FL (78-98); MEAN PLATELET VOLUME 7.8 FL (7.4-10.4); MONOCYTES # (AUTO) 0.8 X10'3 (0-0.9); MONOCYTES % (AUTO) 12.7 % (2-12); NEUTROPHILS % (AUTO) 59.4 % (42-75); PLATELET COUNT 297 X10'3 (140-440); RED BLOOD COUNT 3.86 X10'6 (4.70-6.10); RED CELL DISTRIBUTION WIDTH 13.7 % (11.5-14.5); WHITE BLOOD COUNT 6.7 X10'3 (4.5-11.0)
[2019-02-27 05:31] LABS: ALBUMIN 1.9 G/DL (3.4-5.0); ANION GAP 6 (8-16); BLOOD UREA NITROGEN 22 MG/DL (7-18); CALCIUM 8.7 MG/DL (8.5-10.1); CHLORIDE 106 MMOL/L (99-107); GLUCOSE 180 MG/DL (70-104); POTASSIUM 4.4 MMOL/L (3.5-5.1); SODIUM 142 MMOL/L (135-145); TOTAL CARBON DIOXIDE 30.1 MMOL/L (24-32); eGFR 35 ML/MIN
[2019-02-27] MEDS: thyroid, pork 30mg tablet PO SCH (06:33)
--- NOTE | 2019-02-27 06:37 | NUR ---
Problems reprioritized. Patient report given, questions answered & plan of care reviewed with Elizabeth MCNEAL.
--- NOTE | 2019-02-27 06:38 | NUR ---
Patient in room [facility]. I have received report from jessica cisneros and had the opportunity to ask questions and assume patient care.
[2019-02-27 07:00] VITALS: BP 136/84
[2019-02-27] MEDS: benzonatate 100mg capsule PO SCH ×3 (07:15→21:07)
[2019-02-27] MEDS: lactobacillus rhamnosus 10,000 MMU CELLS/CAPSULE PO SCH ×2 (07:15→19:30)
[2019-02-27] MEDS: lisinopril 5mg tablet PO SCH (07:15)
[2019-02-27] MEDS: famotidine 20mg tablet PO SCH ×2 (07:15→19:30)
[2019-02-27] MEDS: varenicline tartrate 0.5mg tablet PO SCH ×2 (07:25→19:30)
[2019-02-27] MEDS: aspirin 81mg tab.chew PO SCH (07:25)
[2019-02-27] MEDS: K and/or MAG REPLACEMENT MC SCH (08:00)
[2019-02-27] MEDS: enoxaparin 40mg/0.4ml syringe SQ SCH (08:00)
[2019-02-27] MEDS: insulin Lispro (HumaLOG) vial - multi-dose SQ SCH ×3 (08:36→19:37)
[2019-02-27 11:00] VITALS: BP 137/81
--- NOTE | 2019-02-27 17:13 | NUR ---
patient very non compliant with diet. walked down to cafeteria and came back with candy and chips. Education given, but still not compliant. Showered himself this shift. site looks clean with minimal drainage , is open to air. Up ad mavis. All cares given.
--- NOTE | 2019-02-27 18:44 | NUR ---
Problems reprioritized. Patient report given, questions answered & plan of care reviewed with VERA MCNEAL.
--- NOTE | 2019-02-27 19:06 | NUR ---
Patient in room [facility]. I have received report from Elizabeth MCENAL and had the opportunity to ask questions and assume patient care. Pt laying on his left side watching tv with CPAP on and IV abx currently infusing @12.5. No signs of distress, will continue to monitor.
[2019-02-27 20:00] VITALS: BP 138/72
[2019-02-27] MEDS: polyethylene glycol 3350 17gm powd pack PO SCH (21:00)
[2019-02-27] MEDS: insulin glargine (Lantus) pen - multi-dose SQ SCH (21:07)
[2019-02-28] MEDS: piperacillin/tazo 3.375gm/50ml 50 ML IV SCH ×4 (00:07→23:59)
[2019-02-28 00:36] VITALS: BP 147/76
[2019-02-28] MEDS: HYDROcodone/acetaminophen 10/325mg tab PO PRN ×2 (03:06→19:13)
[2019-02-28] MEDS ORDERED: thyroid, pork 30mg tablet PO SCH ×2 (05:00)
[2019-02-28 05:06] LABS: ALBUMIN 1.9 G/DL (3.4-5.0); ANION GAP 5 (8-16); BLOOD UREA NITROGEN 22 MG/DL (7-18); BUN/CREATININE RATIO 11.4 (5.4-32.0); CALCIUM 9.2 MG/DL (8.5-10.1); CHLORIDE 105 MMOL/L (99-107); CREATININE 1.93 MG/DL (0.60-1.10); GLUCOSE 218 MG/DL (70-104); POTASSIUM 4.5 MMOL/L (3.5-5.1); SODIUM 141 MMOL/L (135-145); TOTAL CARBON DIOXIDE 30.7 MMOL/L (24-32); eGFR 36 ML/MIN
[2019-02-28] MEDS: thyroid, pork 30mg tablet PO SCH (05:58)
--- NOTE | 2019-02-28 06:32 | NUR ---
Problems reprioritized. Patient report given, questions answered & plan of care reviewed with Elizabeth MCNEAL.
--- NOTE | 2019-02-28 06:49 | NUR ---
Patient in room [facility]. I have received report from jessica cisneros and had the opportunity to ask questions and assume patient care.
[2019-02-28 07:00] VITALS: BP 132/68
[2019-02-28] MEDS: varenicline tartrate 0.5mg tablet PO SCH ×2 (07:57→21:20)
[2019-02-28] MEDS: aspirin 81mg tab.chew PO SCH (07:57)
[2019-02-28] MEDS: lisinopril 5mg tablet PO SCH (07:57)
[2019-02-28] MEDS: famotidine 20mg tablet PO SCH ×2 (07:57→21:19)
[2019-02-28] MEDS: lactobacillus rhamnosus 10,000 MMU CELLS/CAPSULE PO SCH ×2 (07:57→21:19)
[2019-02-28] MEDS: benzonatate 100mg capsule PO SCH ×3 (07:57→21:19)
[2019-02-28] MEDS: K and/or MAG REPLACEMENT MC SCH (08:00)
[2019-02-28] MEDS: enoxaparin 40mg/0.4ml syringe SQ SCH (08:00)
[2019-02-28] MEDS: insulin Lispro (HumaLOG) vial - multi-dose SQ SCH ×3 (09:34→20:06)
--- NOTE | 2019-02-28 18:54 | NUR ---
Patient stable during shift. showered x1. seen by dr Beckham. Hydrocortisone cream ordered for rash on right and left legs. Seen by Dr Carroll. Not requiring pain relief. All cares given.Report given to Lilia Mcknight RN
--- NOTE | 2019-02-28 19:04 | NUR ---
Patient in room [facility]. I have received report from FREDIS Johnson and had the opportunity to ask questions and assume patient care. Addendum: 02/28/19 at 1904 by Zonia Singh RN Amended: Links added.
[2019-02-28 20:00] VITALS: BP 129/73
[2019-02-28] MEDS: hydrocortisone 1% cream 28gm TP SCH (21:21)
[2019-02-28] MEDS: polyethylene glycol 3350 17gm powd pack PO SCH (21:21)
[2019-02-28] MEDS: insulin glargine (Lantus) pen - multi-dose SQ SCH (21:27)
[2019-03-01] VITALS: BP 115/62
[2019-03-01] MEDS: thyroid, pork 30mg tablet PO SCH (05:26)
--- NOTE | 2019-03-01 05:53 | NUR ---
pt in no distress and stable, pain med given once and slept most of the time. Addendum: 03/01/19 at 0554 by Zonia Singh RN Amended: Links added.
--- NOTE | 2019-03-01 06:40 | NUR ---
Problems reprioritized. Patient report given, questions answered & plan of care reviewed with FREDIS Bravo. Addendum: 03/01/19 at 0641 by Zonia Singh RN Amended: Links added.
[2019-03-01 07:00] VITALS: BP 119/66
[2019-03-01] MEDS: enoxaparin 40mg/0.4ml syringe SQ SCH (08:00)
[2019-03-01] MEDS: hydrocortisone 1% cream 28gm TP SCH (08:00)
[2019-03-01] MEDS: K and/or MAG REPLACEMENT MC SCH (08:00)
[2019-03-01] MEDS: lisinopril 5mg tablet PO SCH (08:07)
[2019-03-01] MEDS: aspirin 81mg tab.chew PO SCH (08:08)
[2019-03-01] MEDS: varenicline tartrate 0.5mg tablet PO SCH (08:08)
[2019-03-01] MEDS: lactobacillus rhamnosus 10,000 MMU CELLS/CAPSULE PO SCH (08:08)
[2019-03-01] MEDS: famotidine 20mg tablet PO SCH (08:08)
[2019-03-01] MEDS: benzonatate 100mg capsule PO SCH (08:08)
[2019-03-01] MEDS: piperacillin/tazo 3.375gm/50ml 50 ML IV SCH (08:09)
[2019-03-01] MEDS: insulin Lispro (HumaLOG) vial - multi-dose SQ SCH (08:26)
[2019-03-01] MEDS ORDERED: HYDR-3964 PO (10:11)
[2019-03-01] MEDS ORDERED: AMOX-580 PO (10:12)
--- NOTE | 2019-03-01 12:33 | NUR ---
PT DISCHARGED IN STABLE CONDITION. LEFT FACILITY IN PRIVATE VEHICLE. ALL BELONGINGS IN HAND INCLUDING RX FOR NORCO DELIVERED BY [facility]. IV DC CANULA INTACT. FOLLOW UP INSTRUCTIONS GIVEN, ALL QUESTIONS ANSWERED. Addendum: 03/01/19 at 1234 by Shelly Mei RN Amended: Links added.
== END 2019-03-01 12:15 | disposition home or self-care (01) | DRG 854 ==
LOC: ER 08:27 → ED HOLD 13:13 → SUR 3N 22:55
PROVIDERS: ADMIT Hospitalist; ATTEND Internal Medicine
PROC: BW211ZZ Computerized Tomography (CT Scan) of Abdomen and Pelvis using Low Osmolar Contrast (ICD-10-PCS; 2019-02-19)
PROC: 0D9P0ZZ Drainage of Rectum, Open Approach (ICD-10-PCS; principal; 2019-02-20 17:45)
PROC: 5A09357 Assistance with Respiratory Ventilation, Less than 24 Consecutive Hours, Continuous Positive Airway Pressure (ICD-10-PCS; 2019-02-21)
PROC: 5A09357 Assistance with Respiratory Ventilation, Less than 24 Consecutive Hours, Continuous Positive Airway Pressure (ICD-10-PCS; 2019-02-27)
PROC: 5A09357 Assistance with Respiratory Ventilation, Less than 24 Consecutive Hours, Continuous Positive Airway Pressure (ICD-10-PCS; 2019-02-28)
DX: A41.9 Sepsis, unspecified organism (principal); L03.317 Cellulitis of buttock; K61.1 Rectal abscess; N17.9 Acute kidney failure, unspecified; Z68.41 Body mass index [BMI] 40.0-44.9, adult; E11.52 Type 2 diabetes mellitus with diabetic peripheral angiopathy with gangrene; E03.9 Hypothyroidism, unspecified; E11.22 Type 2 diabetes mellitus with diabetic chronic kidney disease; E66.01 Morbid (severe) obesity due to excess calories; K57.90 Diverticulosis of intestine, part unspecified, without perforation or abscess without bleeding; R21 Rash and other nonspecific skin eruption; F17.200 Nicotine dependence, unspecified, uncomplicated; I12.9 Hypertensive chronic kidney disease with stage 1 through stage 4 chronic kidney disease, or unspecified chronic kidney disease; L40.9 Psoriasis, unspecified; M19.90 Unspecified osteoarthritis, unspecified site; N18.9 Chronic kidney disease, unspecified; Z87.39 Personal history of other diseases of the musculoskeletal system and connective tissue; Z79.899 Other long term (current) drug therapy; Z86.14 Personal history of Methicillin resistant Staphylococcus aureus infection; Z71.6 Tobacco abuse counseling
CPT/HCPCS: 96365; 96368; 96375; 99285; Z7506; 36415; 71045; 74176; 74177; 80048; 80053; 80202; 81001; 82948; 83605; 83735; 84145; 84443; 84484; 85025; 85610; 87040; 87070; 87075; 87076; 87077; 87102; 87186; 93005; A6266; A6446; A6449; A7000; G0378; J0330; J1650; J1815; J2001; J2020; J2250; J2270; J2405; J2543; J2704; J2765; J3010; J3370; J7030; J7120; Q9963; Q9967

== ENCOUNTER 2019-03-19 04:59 | Inpatient (IN) | payer BC ==
[~2019-03-19] VITALS: Ht 188 cm; Wt 165.9 kg
[~2019-03-19 04:59] MED LIST changes: -ALBU17AE26 INH; +AMOX-580 PO; +FAMO20TA8 PO; +HYDR-3964 PO; +NAPR220T67 PO; +TRAZ-219 PO
[2019-03-19] MEDS ORDERED: CefTRIAXone 2gm/D5W 50ml 50 ML IV ONE (05:35)
[2019-03-19 06:15] LABS: CLARITY,URINE CLEAR (Clear); COLOR,URINE YELLOW (Yellow); GLUCOSE, URINE NEGATIVE (Neg); KETONES,URINE NEGATIVE (Neg); LEUKOCYTE ESTERASE ,URINE NEGATIVE (Neg); NITRITES, URINE NEGATIVE (Neg); OCCULT BLOOD,URINE SMALL (Neg); PH,URINE 5.5 (4.8-8.0); PROTEIN,URINE 30 mg/dl (Neg); UROBILINOGEN,URINE 0.2 E.U/dL (0.2-1.0)
[2019-03-19 06:16] LABS: BASOPHILS % (AUTO) 0.8 % (0-1); EOSINOPHILS # (AUTO) 0.4 X10'3 (0-0.9); EOSINOPHILS % (AUTO) 6.6 % (0-6); HEMATOCRIT 37.2 % (42.0-52.0); HEMOGLOBIN 12.5 g/dl (14.0-17.9); LYMPHOCYTES # (AUTO) 1.8 X10'3 (1.1-4.8); LYMPHOCYTES % (AUTO) 32.4 % (21-51); MEAN CORPUSCULAR HEMOGLOBIN 31.7 PG (27.0-31.0); MEAN CORPUSCULAR HGB CONC 33.5 g/dL (33.0-36.5); MEAN CORPUSCULAR VOLUME 94.8 FL (78-98); MEAN PLATELET VOLUME 8.3 FL (7.4-10.4); MONOCYTES # (AUTO) 0.8 X10'3 (0-0.9); MONOCYTES % (AUTO) 15.2 % (2-12); NEUTROPHILS # (AUTO) 2.5 X10'3 (1.8-7.7); PLATELET COUNT 141 X10'3 (140-440); RED BLOOD COUNT 3.93 X10'6 (4.70-6.10); RED CELL DISTRIBUTION WIDTH 13.3 % (11.5-14.5); WHITE BLOOD COUNT 5.4 X10'3 (4.5-11.0)
[2019-03-19 06:22] LABS: UA COLLECTION TYPE CLN CATCH MIDSTREAM
[2019-03-19 06:27] LABS: BACTERIA,URINE FEW /HPF (Neg); MUCUS STRANDS MODERATE /LPF (Neg); RBC,URINE 0-2 /HPF (0-2); SQUAMOUS EPITHELIAL CELL,UR FEW /LPF (FEW); WBC,URINE 0-4 /HPF (0-4)
[2019-03-19 06:28] LABS: COARSE GRANULAR CAST 0-3 /LPF (NEGATIVE); HYALINE CASTS 0-3 /LPF (NEGATIVE)
[2019-03-19 06:29] LABS: PARTIAL THROMBOPLASTIN TIME 31 SECONDS (22-32)
[2019-03-19 06:39] LABS: ALANINE AMINOTRANSFERASE 17 U/L (12-78); ALBUMIN 2.8 G/DL (3.4-5.0); ALBUMIN/GLOBULIN RATIO 0.7 (1.1-1.5); ALKALINE PHOSPHATASE 73 IU/L (46-116); ANION GAP 10 (8-16); ASPARTATE AMINO TRANSFERASE 15 U/L (10-37); BILIRUBIN,TOTAL 0.3 MG/DL (0.1-1.0); BLOOD UREA NITROGEN 23 MG/DL (7-18); BUN/CREATININE RATIO 20.2 (5.4-32.0); CALCIUM 9.5 MG/DL (8.5-10.1); CHLORIDE 108 MMOL/L (99-107); CREATININE 1.14 MG/DL (0.60-1.10); GLUCOSE 157 MG/DL (70-104); MAGNESIUM 1.8 MG/DL (1.5-2.4); POTASSIUM 4.1 MMOL/L (3.5-5.1); SODIUM 143 MMOL/L (135-145); TOTAL CARBON DIOXIDE 24.7 MMOL/L (24-32); TOTAL PROTEIN 6.8 G/DL (6.4-8.2); eGFR 66 ML/MIN
[2019-03-19] MEDS ORDERED: iohexol 300mg/ml 100ml inj. ONE (06:52)
[2019-03-19] MEDS ORDERED: DOXY100C2 PO (08:59)
[2019-03-19] MEDS ORDERED: ACYC-202 PO (08:59)
[2019-03-19] MEDS: normal saline 1000ml 1,000 ML IV SCH ×2 (09:02→19:02)
[2019-03-19] MEDS ORDERED: ondansetron/PF 4mg/2ml inj IV PRN (09:05)
[2019-03-19] MEDS ORDERED: mag hydrox/Alum hydrox/simeth 30ml oral suspension PO PRN (09:05)
[2019-03-19] MEDS ORDERED: acetaminophen 325mg tablet PO PRN ×2 (09:05)
[2019-03-19] MEDS ORDERED: magnesium hydroxide 30ml (MOM) UD suspension PO PRN (09:05)
[2019-03-19] MEDS: MESSAGE TO NURSING PO NR (10:00)
[2019-03-19] MEDS: HYDROcodone/acetaminophen 10/325mg tab PO PRN ×2 (11:12→14:54)
--- NOTE | 2019-03-19 11:16 | NUR ---
MESSAGE TO DR. LABOY RE: GUTIERREZ CATH ORDER. PATIENT REFUSES GUTIERREZ CATH AND STATES HE IS ABLE TO USE URINAL WITHOUT INTERRUPTION TO PERINEAL DRESSING ON OPEN, ACTIVELY TREATED WOUND. PAGER ID: [phone] MESSAGE: ER #[id number]: PATIENT REFUSES GUTIERREZ CATH AND STATES HE IS CONTINENT AND ABLE TO VOID WITHOUT INTERFERENCE TO PERINEAL WOUND. VOIDING WELL PER URINAL. FREDIS FLORES (EXT [id number])
--- NOTE | 2019-03-19 12:02 | NUR ---
ATTEMPTED TO CALL REPORT TO NURSE ON ORTHO-NEURO. INSTRUCTED TO CALL BACK IN 10 MINUTES, NURSE IS CURRENTLY BUSY.
--- NOTE | 2019-03-19 12:25 | NUR ---
DR. LABOY CALLED AND STATED THAT GUTIERREZ CAN BE HELD FOR NOW, SINCE PATIENT IS REFUSING AND ABLE TO USE THE URINAL.
--- NOTE | 2019-03-19 12:36 | NUR ---
TELEPHONE REPORT TO FREDIS ROA ON ORTHO/NEURO UNIT.
[2019-03-19 13:32] VITALS: BP 170/84
[2019-03-19] MEDS: piperacillin/tazo 3.375gm/50ml 50 ML IV SCH (16:00)
[2019-03-19] MEDS ORDERED: dextrose ORAL solution 15 GM/59 ML bottle PO PRN ×2 (16:20)
[2019-03-19] MEDS ORDERED: insulin Lispro (HumaLOG) vial - multi-dose SQ SCH (16:20)
[2019-03-19] MEDS ORDERED: MESSAGE TO PHARMACY PO ONE (16:20)
[2019-03-19] MEDS ORDERED: glucagon, human recombinant 1mg kit SUBCUT PRN (16:20)
[2019-03-19] MEDS ORDERED: dextrose 50%-water 50ml dispensing syringe IV PRN ×2 (16:20)
--- NOTE | 2019-03-19 16:30 | NUR ---
Patient in room ORTHO 4013B. I have received report from Sariah MCNEAL and had the opportunity to ask questions and assume patient care.
[2019-03-19 17:17] LABS: HEMOGLOBIN A1C 8.4 % (4.5-6.2)
[2019-03-19 18:00] VITALS: BP 137/71
[2019-03-19] MEDS: lactobacillus rhamnosus 10,000 MMU CELLS/CAPSULE PO SCH (19:57)
[2019-03-19] MEDS: Dakins solution (1/4 strength) 473ml solution TP SCH (19:57)
[2019-03-19] MEDS: insulin glargine (Lantus) pen - multi-dose SQ SCH (21:00)
[2019-03-19] MEDS ORDERED: temazepam 15mg capsule PO PRN (21:00)
[2019-03-19 22:00] VITALS: BP 138/69
[2019-03-19] MEDS: HYDROcodone/acetaminophen 5mg/325mg tablet PO PRN (22:44)
[2019-03-20] MEDS: piperacillin/tazo 3.375gm/50ml 50 ML IV SCH ×4 (00:13→23:41)
--- NOTE | 2019-03-20 06:18 | NUR ---
Patient report given to Krystal MCNEAL, questions answered & plan of care reviewed with her.
[2019-03-20 06:28] LABS: BASOPHILS % (AUTO) 0.8 % (0-1); EOSINOPHILS # (AUTO) 0.4 X10'3 (0-0.9); HEMOGLOBIN 12.4 g/dl (14.0-17.9); LYMPHOCYTES # (AUTO) 1.8 X10'3 (1.1-4.8); LYMPHOCYTES % (AUTO) 34.1 % (21-51); MEAN CORPUSCULAR HEMOGLOBIN 31.4 PG (27.0-31.0); MEAN CORPUSCULAR HGB CONC 33.5 g/dL (33.0-36.5); MEAN CORPUSCULAR VOLUME 93.6 FL (78-98); MONOCYTES # (AUTO) 0.6 X10'3 (0-0.9); MONOCYTES % (AUTO) 11.3 % (2-12); NEUTROPHILS # (AUTO) 2.4 X10'3 (1.8-7.7); NEUTROPHILS % (AUTO) 45.8 % (42-75); PLATELET COUNT 150 X10'3 (140-440); RED BLOOD COUNT 3.95 X10'6 (4.70-6.10); RED CELL DISTRIBUTION WIDTH 13.2 % (11.5-14.5); WHITE BLOOD COUNT 5.2 X10'3 (4.5-11.0)
[2019-03-20 06:41] LABS: ALANINE AMINOTRANSFERASE 16 U/L (12-78); ALBUMIN 2.8 G/DL (3.4-5.0); ALBUMIN/GLOBULIN RATIO 0.7 (1.1-1.5); ALKALINE PHOSPHATASE 73 IU/L (46-116); ANION GAP 7 (8-16); ASPARTATE AMINO TRANSFERASE 13 U/L (10-37); BILIRUBIN,TOTAL 0.3 MG/DL (0.1-1.0); BLOOD UREA NITROGEN 21 MG/DL (7-18); BUN/CREATININE RATIO 17.9 (5.4-32.0); CHLORIDE 108 MMOL/L (99-107); CREATININE 1.17 MG/DL (0.60-1.10); GLUCOSE 148 MG/DL (70-104); POTASSIUM 4.1 MMOL/L (3.5-5.1); SODIUM 142 MMOL/L (135-145); TOTAL CARBON DIOXIDE 27.5 MMOL/L (24-32); TOTAL PROTEIN 6.6 G/DL (6.4-8.2); eGFR 64 ML/MIN
[2019-03-20] MEDS: normal saline 1000ml 1,000 ML IV SCH ×3 (06:46→23:41)
[2019-03-20 07:03] VITALS: BP 134/91
[2019-03-20] MEDS: MESSAGE TO NURSING PO NR (07:06)
[2019-03-20] MEDS: lactobacillus rhamnosus 10,000 MMU CELLS/CAPSULE PO SCH ×2 (07:54→19:58)
[2019-03-20] MEDS: lisinopril 5mg tablet PO SCH (07:54)
[2019-03-20] MEDS: thyroid, pork 30mg tablet PO SCH (07:54)
[2019-03-20] MEDS: enoxaparin 40mg/0.4ml syringe SQ SCH (07:55)
[2019-03-20] MEDS: Dakins solution (1/4 strength) 473ml solution TP SCH ×2 (09:58→20:01)
--- NOTE | 2019-03-20 10:54 | NUR ---
PT REFUSING TO USE HIS PIV, REQUESTING A "LONG LINE" EXTENDED DUE TO PAIN WHEN FLUSHING THE PIV. MD AWARE AND ADVISED TO LET ID CONSULT FOR NECESSITY OF EXTENDED. PT REFUSING ANTIBIOTIC UNTIL EXTENDED IS PLACED.
[2019-03-20 11:03] VITALS: BP 140/96
--- NOTE | 2019-03-20 11:38 | NUR ---
DM Consult: A1C 8.4. Pt admit w/ cellulitis hx necrotizing fasciitis s/p prior I&D to R butt/groin area for abscess currently open per EMR. Pt A1C in January 6.3 now 8.4 likely r/t infection and non-healing wound as well as diet. Pt seen by RD for written/verbal high protein/DM eds w/ RD contact information provided. Pt agrees to double proteins TIDWM and requests chicken w/ dinner tonight; RD notified dietary. FRANCISCO J Goodybag for MVI r/t wound healing needs. Will continue to monitor. Rec: 1. continue carb controlled diet 2. double proteins TIDWM 3. MVI for wounds 4. routine bowel care 5. wt per rx Addendum: 03/20/19 at [address] Amended: Links added.
[2019-03-20] MEDS: HYDROcodone/acetaminophen 10/325mg tab PO PRN ×2 (16:24→19:58)
[2019-03-20 18:30] VITALS: BP 171/84
[2019-03-20] MEDS: insulin glargine (Lantus) pen - multi-dose SQ SCH (21:00)
[2019-03-20 22:00] VITALS: BP 133/76
[2019-03-21] MEDS: HYDROcodone/acetaminophen 5mg/325mg tablet PO PRN (04:13)
[2019-03-21 06:00] VITALS: BP 131/68
[2019-03-21] MEDS: lactobacillus rhamnosus 10,000 MMU CELLS/CAPSULE PO SCH (07:33)
[2019-03-21] MEDS: lisinopril 5mg tablet PO SCH (07:33)
[2019-03-21] MEDS: piperacillin/tazo 3.375gm/50ml 50 ML IV SCH (07:34)
[2019-03-21] MEDS: thyroid, pork 30mg tablet PO SCH (07:34)
[2019-03-21] MEDS: enoxaparin 40mg/0.4ml syringe SQ SCH (07:35)
[2019-03-21] MEDS: Dakins solution (1/4 strength) 473ml solution TP SCH (08:00)
[2019-03-21] MEDS ORDERED: AMOX-580 PO (09:22)
--- NOTE | 2019-03-21 09:41 | NUR ---
Page dr. causey MESSAGE: [id number] Jim Dowd Are you on the third floor to fill out an Excuse from work form? Araceli [phone]
--- NOTE | 2019-03-21 10:19 | NUR ---
Patient refused wound pictures for discharge. Wound was present on discharge.
--- NOTE | 2019-03-21 11:10 | NUR ---
Called in prescription to [facility]. Patient discharged.
== END 2019-03-21 11:15 | disposition home or self-care (01) | DRG 603 ==
LOC: ER 04:59 → ORTHO 4S 13:17
PROVIDERS: ADMIT Family Medicine; ATTEND Internal Medicine
PROC: BQ2S1ZZ Computerized Tomography (CT Scan) of Left Lower Extremity using Low Osmolar Contrast (ICD-10-PCS; principal; 2019-03-19)
DX: L03.116 Cellulitis of left lower limb (principal); Z68.42 Body mass index [BMI] 45.0-49.9, adult; E03.9 Hypothyroidism, unspecified; E11.21 Type 2 diabetes mellitus with diabetic nephropathy; E11.22 Type 2 diabetes mellitus with diabetic chronic kidney disease; E66.01 Morbid (severe) obesity due to excess calories; M19.90 Unspecified osteoarthritis, unspecified site; I12.9 Hypertensive chronic kidney disease with stage 1 through stage 4 chronic kidney disease, or unspecified chronic kidney disease; L40.9 Psoriasis, unspecified; N18.9 Chronic kidney disease, unspecified; Z86.14 Personal history of Methicillin resistant Staphylococcus aureus infection; Z87.39 Personal history of other diseases of the musculoskeletal system and connective tissue; Z79.899 Other long term (current) drug therapy; Z87.891 Personal history of nicotine dependence
CPT/HCPCS: 36415; 71045; 73701; 80053; 81001; 82948; 83036; 83605; 83735; 84145; 85025; 85610; 85730; 87040; 87070; 96365; 99285; G0378; J0696; J1650; J1815; J2543; J7030; Q9967

== ENCOUNTER 2020-06-21 03:08 | Emergency (ER) | payer BC ==
[~2020-06-21] VITALS: Ht 188 cm; Wt 155.0 kg
[~2020-06-21 03:08] MED LIST changes: +ACYC-202 PO; -AMOX-580 PO; -BENZ200C59 PO; -FAMO20TA8 PO; -GLIM2TAB2 PO; +GLIM2TAB6 PO; -HYDR-3964 PO; -TRAZ-219 PO; -VARE0.5T PO
[2020-06-21 03:14] VITALS: BP 159/102
[2020-06-21] MEDS ORDERED: HYDR-3965 PO (03:49)
[2020-06-21] MEDS ORDERED: triamcinolone acetonide 40mg/ml inj IM ONE (03:50)
[2020-06-21] MEDS ORDERED: acetaminophen 325mg tablet PO ONE (03:50)
[2020-06-21] MEDS ORDERED: ketorolac trometh inj. 60 MG/2 ML VIAL IM ONE (03:50)
== END 2020-06-21 04:20 | disposition home or self-care (01) ==
LOC: ER 03:08
DX: M25.511 Pain in right shoulder (principal); M25.512 Pain in left shoulder; M25.532 Pain in left wrist; I10 Essential (primary) hypertension; E11.9 Type 2 diabetes mellitus without complications; E03.9 Hypothyroidism, unspecified; M19.90 Unspecified osteoarthritis, unspecified site; Z86.14 Personal history of Methicillin resistant Staphylococcus aureus infection; Z98.890 Other specified postprocedural states; Z79.2 Long term (current) use of antibiotics; Z79.899 Other long term (current) drug therapy
CPT/HCPCS: 96372; 99284; J1885; J3301

== ENCOUNTER 2020-07-13 05:45 | Emergency (ER) | payer BC ==
[~2020-07-13] VITALS: Ht 188 cm; Wt 155.9 kg
[~2020-07-13 05:45] MED LIST changes: +CELE-193 PO; +HYDR-3965 PO
[2020-07-13] MEDS ORDERED: ketorolac trometh inj. 60 MG/2 ML VIAL IM ONE (06:05)
--- NOTE | 2020-07-13 06:22 | NUR ---
received report assumed care. pain meds given. dr mohr at bed side haja pt
[2020-07-13] MEDS ORDERED: morphine 4 MG/ML inj SYRINge IV ONE (06:40)
[2020-07-13 06:49] LABS: BASOPHILS # (AUTO) 0.1 X10'3 (0-0.2); BASOPHILS % (AUTO) 0.7 % (0-1); EOSINOPHILS # (AUTO) 0.4 X10'3 (0-0.9); EOSINOPHILS % (AUTO) 3.7 % (0-6); HEMATOCRIT 44.5 % (42.0-52.0); HEMOGLOBIN 14.7 g/dl (14.0-17.9); LYMPHOCYTES # (AUTO) 1.9 X10'3 (1.1-4.8); LYMPHOCYTES % (AUTO) 17.6 % (21-51); MEAN CORPUSCULAR HEMOGLOBIN 31.4 PG (27.0-31.0); MEAN CORPUSCULAR HGB CONC 33.1 g/dL (33.0-36.5); MEAN PLATELET VOLUME 7.5 FL (7.4-10.4); MONOCYTES # (AUTO) 0.9 X10'3 (0-0.9); NEUTROPHILS # (AUTO) 7.3 X10'3 (1.8-7.7); PLATELET COUNT 282 X10'3 (140-440); RED BLOOD COUNT 4.69 X10'6 (4.70-6.10); RED CELL DISTRIBUTION WIDTH 13.3 % (11.5-14.5); WHITE BLOOD COUNT 10.6 X10'3 (4.5-11.0)
[2020-07-13 06:53] LABS: ALANINE AMINOTRANSFERASE 8 U/L (12-78); ALBUMIN 2.7 G/DL (3.4-5.0); ALBUMIN/GLOBULIN RATIO 0.7 (1.1-1.5); ALKALINE PHOSPHATASE 82 IU/L (46-116); ANION GAP 7 (8-16); ASPARTATE AMINO TRANSFERASE 11 U/L (10-37); BILIRUBIN,TOTAL 0.3 MG/DL (0.1-1.0); BLOOD UREA NITROGEN 19 MG/DL (7-18); BUN/CREATININE RATIO 17.8 (5.4-32.0); CALCIUM 9.1 MG/DL (8.5-10.1); CHLORIDE 107 MMOL/L (99-107); CREATININE 1.07 MG/DL (0.60-1.10); GLUCOSE 160 MG/DL (70-104); POTASSIUM 4.7 MMOL/L (3.5-5.1); SODIUM 143 MMOL/L (135-145); TOTAL CARBON DIOXIDE 29.4 MMOL/L (24-32); TOTAL PROTEIN 6.8 G/DL (6.4-8.2); eGFR 71 ML/MIN
[2020-07-13 06:54] VITALS: BP 168/99
[2020-07-13 06:54] LABS: CREATINE KINASE 33 U/L (39-308)
--- NOTE | 2020-07-13 07:32 | NUR ---
pt complaining of increase in pain morphine given
--- NOTE | 2020-07-13 08:18 | NUR ---
was asked by to have pt ambulate. pt was able to sit up at edge of bed on his own but struggled r/t the size of his upper body after getting up at edge of bed he need the bed rased up a alittle be be able to stand one he was up he ambulated around the room with a slow shuffled gate. then he used the urinal and sat himself back in bed
[2020-07-13] MEDS ORDERED: CYCL-1 PO (09:11)
[2020-07-13] MEDS ORDERED: HYDR-4353 PO ×2 (09:11→09:12)
== END 2020-07-13 09:37 | disposition home or self-care (01) ==
LOC: ER 05:45
DX: M79.10 Myalgia, unspecified site (principal); R53.1 Weakness; I10 Essential (primary) hypertension; G47.30 Sleep apnea, unspecified; E11.9 Type 2 diabetes mellitus without complications; E03.9 Hypothyroidism, unspecified; M19.90 Unspecified osteoarthritis, unspecified site; F17.210 Nicotine dependence, cigarettes, uncomplicated; Z86.14 Personal history of Methicillin resistant Staphylococcus aureus infection; E66.01 Morbid (severe) obesity due to excess calories; F17.200 Nicotine dependence, unspecified, uncomplicated; Z98.890 Other specified postprocedural states; Z79.899 Other long term (current) drug therapy
CPT/HCPCS: 36415; 80053; 82550; 84443; 85025; 96372; 96374; 99284; J1885; J2270

== ENCOUNTER 2023-05-02 13:35 | Day surgery (SDC) | payer OTHER, SELFPAY ==
[2023-04-29 08:32] LABS: BASOPHILS # (AUTO) 0.1 X10'3 (0-0.2); BASOPHILS % (AUTO) 1.1 % (0-1); EOSINOPHILS # (AUTO) 0.4 X10'3 (0-0.9); EOSINOPHILS % (AUTO) 6.9 % (0-6); HEMATOCRIT 45.1 % (42.0-52.0); LYMPHOCYTES # (AUTO) 1.1 X10'3 (1.1-4.8); LYMPHOCYTES % (AUTO) 21.6 % (21-51); MEAN CORPUSCULAR HEMOGLOBIN 31.8 PG (27.0-31.0); MEAN CORPUSCULAR HGB CONC 33.4 g/dL (33.0-36.5); MEAN CORPUSCULAR VOLUME 95.2 FL (78-98); MEAN PLATELET VOLUME 7.7 FL (7.4-10.4); MONOCYTES # (AUTO) 0.5 X10'3 (0-0.9); MONOCYTES % (AUTO) 8.6 % (2-12); NEUTROPHILS # (AUTO) 3.3 X10'3 (1.8-7.7); NEUTROPHILS % (AUTO) 61.8 % (42-75); PLATELET COUNT 223 X10'3 (140-440); RED BLOOD COUNT 4.74 X10'6 (4.70-6.10); RED CELL DISTRIBUTION WIDTH 13.4 % (11.5-14.5); WHITE BLOOD COUNT 5.3 X10'3 (4.5-11.0)
[2023-04-29 08:51] LABS: APTT 30 SECONDS (22-32)
[2023-04-29 09:54] LABS: ALBUMIN 3.4 G/DL (3.4-5.0); ANION GAP 10 (8-16); BLOOD UREA NITROGEN 24 MG/DL (7-18); BUN/CREATININE RATIO 18.2 (10.0-20.0); CALCIUM 8.7 MG/DL (8.5-10.1); CHLORIDE 107 MMOL/L (99-107); CHOLESTEROL 188 MG/DL (0-200); CREATININE 1.32 MG/DL (0.60-1.10); GLUCOSE 244 MG/DL (70-104); HDL CHOLESTEROL 47 MG/DL (35-60); LDL CHOLESTEROL 123 MG/DL (50-100); POTASSIUM 4.3 MMOL/L (3.5-5.1); SODIUM 143 MMOL/L (135-145); TOTAL CARBON DIOXIDE 25.6 MMOL/L (24-32); TRIGLYCERIDES 106 MG/DL (20-135); eGFR 55 ML/MIN
[~2023-05-02] VITALS: Ht 188 cm; Wt 178.1 kg
[2023-05-02] VITALS (8 sets, daily range): BP systolic 130–161; BP diastolic 69–92
[~2023-05-02 13:35] MED LIST changes: +ACYC-129 PO; -ACYC-202 PO; -CELE-193 PO; +CYCL-1 PO; -HYDR-3965 PO; -LISI-604 PO; +LISI5TAB22 PO
[2023-05-02] MEDS ORDERED: diphenhydrAMINE 25mg capsule PO PRN (13:55)
[2023-05-02] MEDS ORDERED: LORazepam 0.5 MG tablet PO PRN (13:55)
[2023-05-02] MEDS ORDERED: DULO30CA52 PO (13:58)
[2023-05-02] MEDS ORDERED: LEVO200T8 PO (13:58)
[2023-05-02] MEDS ORDERED: LEVO75TA7 PO (13:58)
[2023-05-02] MEDS ORDERED: MAGN400T56 PO (13:58)
[2023-05-02] MEDS ORDERED: BUDE10.7 (13:58)
[2023-05-02] MEDS ORDERED: LINA5TAB4 PO (13:58)
[2023-05-02] MEDS ORDERED: LISI10TA27 PO (13:58)
[2023-05-02] MEDS ORDERED: nitroGLYCERIN-Tridil 50MG/D5W 250 ML IV ONE (16:14)
[2023-05-02] MEDS ORDERED: LIDOcaine 1% (10mg/ml) 2ml vial ONE (16:14)
[2023-05-02] MEDS ORDERED: verapamil 2.5 mg/ml inj IV ONE (16:14)
[2023-05-02] MEDS ORDERED: fentaNYL/PF 50MCG/1 ML 2ML syringe ONE (16:15)
[2023-05-02] MEDS ORDERED: iohexol 350MG/ML 100ml bottle IV ONE (16:15)
[2023-05-02] MEDS ORDERED: midazolam 1 mg/ML 2ml injection ONE (16:15)
[2023-05-02] MEDS ORDERED: heparin 1,000unit/ml 10ml vial 10 ML ONE (16:15)
[2023-05-02] MEDS ORDERED: HYDROcodone/acetaminophen 10/325mg tab PO PRN (17:45)
[2023-05-02] MEDS ORDERED: HYDROcodone/acetaminophen 5mg/325mg tablet PO PRN (17:45)
== END 2023-05-02 19:05 | disposition home or self-care (01) ==
LOC: SSTAY O 13:35
PROVIDERS: ATTEND Student in an Organized Health Care Education/Training Program
DX: R94.39 Abnormal result of other cardiovascular function study (principal); I25.10 Atherosclerotic heart disease of native coronary artery without angina pectoris; I10 Essential (primary) hypertension; E11.9 Type 2 diabetes mellitus without complications; E78.5 Hyperlipidemia, unspecified; E66.9 Obesity, unspecified; Z68.43 Body mass index [BMI] 50.0-59.9, adult; Z79.899 Other long term (current) drug therapy; Z79.84 Long term (current) use of oral hypoglycemic drugs; Z79.01 Long term (current) use of anticoagulants
CPT/HCPCS: 36415; 80048; 80061; 82948; 85025; 85610; 85730; 93005; 93458; 99152; J1644; J2250; J3010; J3490; J7030; Q0163; Q9967; 99153; A6258; A6402; C1894

== ENCOUNTER 2023-06-14 08:58 | Emergency (ER) | payer OTHER ==
[~2023-06-14] VITALS: Ht 188 cm; Wt 170.0 kg
[~2023-06-14 08:58] MED LIST changes: -ACYC-129 PO; +BUDE10.7; -CYCL-1 PO; +DULO30CA52 PO; -GLIM2TAB6 PO; -GUSE100S SUBCUT; +LEVO200T8 PO; +LEVO75TA7 PO; +LINA5TAB4 PO; +LISI10TA27 PO; -LISI5TAB22 PO; +MAGN400T56 PO; -NAPR220T67 PO; -THYR240T PO
[2023-06-14 09:08] VITALS: BP 169/90; PULSE 79; RESP 18; TEMP 99; O2SAT 97
[2023-06-14 09:36] LABS: BASOPHILS # (AUTO) 0.1 X10'3 (0-0.2); EOSINOPHILS # (AUTO) 0.3 X10'3 (0-0.9); EOSINOPHILS % (AUTO) 4.5 % (0-6); HEMATOCRIT 44.9 % (42.0-52.0); HEMOGLOBIN 15.1 g/dl (14.0-17.9); LYMPHOCYTES # (AUTO) 1.4 X10'3 (1.1-4.8); LYMPHOCYTES % (AUTO) 20.7 % (21-51); MEAN CORPUSCULAR HEMOGLOBIN 31.8 PG (27.0-31.0); MEAN CORPUSCULAR HGB CONC 33.7 g/dL (33.0-36.5); MEAN CORPUSCULAR VOLUME 94.5 FL (78-98); MEAN PLATELET VOLUME 7.6 FL (7.4-10.4); MONOCYTES # (AUTO) 0.6 X10'3 (0-0.9); MONOCYTES % (AUTO) 9.1 % (2-12); NEUTROPHILS # (AUTO) 4.3 X10'3 (1.8-7.7); NEUTROPHILS % (AUTO) 64.7 % (42-75); PLATELET COUNT 205 X10'3 (140-440); RED BLOOD COUNT 4.75 X10'6 (4.70-6.10); RED CELL DISTRIBUTION WIDTH 12.6 % (11.5-14.5); WHITE BLOOD COUNT 6.6 X10'3 (4.5-11.0)
[2023-06-14 09:49] LABS: ALANINE AMINOTRANSFERASE 25 U/L (12-78); ALBUMIN 3.5 G/DL (3.4-5.0); ALBUMIN/GLOBULIN RATIO 0.9 (1.1-1.5); ALKALINE PHOSPHATASE 107 IU/L (46-116); ANION GAP 7 (8-16); ASPARTATE AMINO TRANSFERASE 15 U/L (10-37); BILIRUBIN,TOTAL 0.5 MG/DL (0.1-1.0); BLOOD UREA NITROGEN 25 MG/DL (7-18); BUN/CREATININE RATIO 18.1 (10.0-20.0); CHLORIDE 102 MMOL/L (99-107); CREATININE 1.38 MG/DL (0.60-1.10); GLUCOSE 271 MG/DL (70-104); POTASSIUM 4.8 MMOL/L (3.5-5.1); SODIUM 134 MMOL/L (135-145); TOTAL CARBON DIOXIDE 25.3 MMOL/L (24-32); TOTAL PROTEIN 7.4 G/DL (6.4-8.2); eGFR 53 ML/MIN
[2023-06-14 09:52] LABS: CLARITY,URINE CLEAR (Clear); COLOR,URINE YELLOW (Yellow); GLUCOSE, URINE 250 mg/dl (Neg); KETONES,URINE NEGATIVE (Neg); LEUKOCYTE ESTERASE ,URINE NEGATIVE (Neg); NITRITES, URINE NEGATIVE (Neg); OCCULT BLOOD,URINE TRACE-INTACT (Neg); PROTEIN,URINE 100 mg/dl (Neg); UROBILINOGEN,URINE 0.2 E.U/dL (0.2-1.0)
[2023-06-14 09:54] LABS: CALCIUM 9.4 MG/DL (8.5-10.1)
[2023-06-14 10:09] LABS: UA COLLECTION TYPE CLN CATCH MIDSTREAM
[2023-06-14 10:30] LABS: MUCUS STRANDS FEW /LPF (Neg); SQUAMOUS EPITHELIAL CELL,UR MODERATE /LPF (FEW)
[2023-06-14 10:32] LABS: BACTERIA,URINE FEW /HPF (Neg); WBC,URINE 0-4 /HPF (0-4)
[2023-06-14 10:33] LABS: COARSE GRANULAR CAST 0-3 /LPF (NEGATIVE)
[2023-06-16] MEDS ORDERED: ATOR40TA72 PO (13:15)
[2023-06-16] MEDS ORDERED: GLIM4TAB7 PO (13:15)
[2023-06-16] MEDS ORDERED: ASPI-1071 PO (13:15)
== END 2023-06-14 10:27 | disposition home or self-care (01) ==
LOC: ER 08:58
DX: M54.50 Low back pain, unspecified (principal); I10 Essential (primary) hypertension; E11.9 Type 2 diabetes mellitus without complications; E03.9 Hypothyroidism, unspecified; M19.90 Unspecified osteoarthritis, unspecified site; Z88.5 Allergy status to narcotic agent; Z79.899 Other long term (current) drug therapy
CPT/HCPCS: 36415; 80053; 81001; 85025; 99283

== ENCOUNTER 2023-08-02 16:07 | Emergency (ER) | payer OTHER ==
[~2023-08-02] VITALS: Ht 188 cm; Wt 150.0 kg
[~2023-08-02 16:07] MED LIST changes: +AMI200T PO; +ASPI-1071 PO; +ATOR40TA72 PO; -BUDE10.7; +FURO-150 PO; +GLIM4TAB7 PO; +HYDR-3972 PO; -LISI10TA27 PO; +LOP12.5T PO; +PANT40TA54 PO; +POTA-206 PO
[2023-08-02 16:09] VITALS: BP 164/80; PULSE 85; RESP 16; TEMP 100.2; O2SAT 96
[2023-08-02] MEDS ORDERED: acetaminophen 325mg tablet PO ONE (16:15)
[2023-08-02 17:16] LABS: BASOPHILS # (AUTO) 0.1 X10'3 (0-0.2); BASOPHILS % (AUTO) 0.6 % (0-1); EOSINOPHILS # (AUTO) 0.6 X10'3 (0-0.9); HEMATOCRIT 37.1 % (42.0-52.0); LYMPHOCYTES % (AUTO) 9.6 % (21-51); MEAN CORPUSCULAR HEMOGLOBIN 31.1 PG (27.0-31.0); MEAN CORPUSCULAR HGB CONC 32.3 g/dL (33.0-36.5); MEAN CORPUSCULAR VOLUME 96.4 FL (78-98); MEAN PLATELET VOLUME 7.7 FL (7.4-10.4); MONOCYTES # (AUTO) 0.9 X10'3 (0-0.9); MONOCYTES % (AUTO) 8.3 % (2-12); NEUTROPHILS # (AUTO) 7.7 X10'3 (1.8-7.7); NEUTROPHILS % (AUTO) 75.5 % (42-75); PLATELET COUNT 280 X10'3 (140-440); RED BLOOD COUNT 3.85 X10'6 (4.70-6.10); RED CELL DISTRIBUTION WIDTH 13.9 % (11.5-14.5); WHITE BLOOD COUNT 10.3 X10'3 (4.5-11.0)
[2023-08-02 17:36] LABS: ALANINE AMINOTRANSFERASE 16 U/L (12-78); ALBUMIN 3.2 G/DL (3.4-5.0); ALBUMIN/GLOBULIN RATIO 0.8 (1.1-1.5); ALKALINE PHOSPHATASE 97 IU/L (46-116); ANION GAP 10 (8-16); ASPARTATE AMINO TRANSFERASE 14 U/L (10-37); BILIRUBIN,TOTAL 0.5 MG/DL (0.1-1.0); BLOOD UREA NITROGEN 17 MG/DL (7-18); BUN/CREATININE RATIO 12.9 (10.0-20.0); CHLORIDE 104 MMOL/L (99-107); CREATININE 1.32 MG/DL (0.60-1.10); GLUCOSE 129 MG/DL (70-104); POTASSIUM 4.2 MMOL/L (3.5-5.1); SODIUM 139 MMOL/L (135-145); TOTAL CARBON DIOXIDE 24.7 MMOL/L (24-32); TOTAL PROTEIN 7.1 G/DL (6.4-8.2); eCRCL 69 ML/MIN; eGFR 55 ML/MIN
[2023-08-02 17:43] LABS: PRO BRAIN NATRIURETIC PEPTIDE 1539 PG/ML (0-125)
[2023-08-03] MEDS ORDERED: CEPH-585 PO ×3 (13:02→13:19)
== END 2023-08-02 20:42 | disposition left against medical advice (07) ==
LOC: ER 16:09
DX: R42 Dizziness and giddiness (principal); Z53.21 Procedure and treatment not carried out due to patient leaving prior to being seen by health care provider
CPT/HCPCS: 36415; 71046; 80053; 83605; 83880; 85025; 87040; 99281

== ENCOUNTER 2023-08-03 08:29 | Emergency (ER) | payer OTHER ==
[~2023-08-03] VITALS: Ht 188 cm; Wt 140.0 kg
[2023-08-03 10:16] LABS: BASOPHILS # (AUTO) 0.1 X10'3 (0-0.2); BASOPHILS % (AUTO) 1.1 % (0-1); EOSINOPHILS # (AUTO) 0.5 X10'3 (0-0.9); EOSINOPHILS % (AUTO) 7.5 % (0-6); HEMATOCRIT 36.8 % (42.0-52.0); HEMOGLOBIN 11.9 g/dl (14.0-17.9); LYMPHOCYTES # (AUTO) 0.8 X10'3 (1.1-4.8); LYMPHOCYTES % (AUTO) 11.4 % (21-51); MEAN CORPUSCULAR HEMOGLOBIN 31.5 PG (27.0-31.0); MEAN CORPUSCULAR HGB CONC 32.3 g/dL (33.0-36.5); MEAN CORPUSCULAR VOLUME 97.3 FL (78-98); MEAN PLATELET VOLUME 7.7 FL (7.4-10.4); MONOCYTES # (AUTO) 0.6 X10'3 (0-0.9); MONOCYTES % (AUTO) 8.4 % (2-12); NEUTROPHILS # (AUTO) 4.9 X10'3 (1.8-7.7); NEUTROPHILS % (AUTO) 71.6 % (42-75); PLATELET COUNT 260 X10'3 (140-440); RED BLOOD COUNT 3.78 X10'6 (4.70-6.10); RED CELL DISTRIBUTION WIDTH 14.2 % (11.5-14.5); WHITE BLOOD COUNT 6.8 X10'3 (4.5-11.0)
[2023-08-03 10:35] LABS: ALANINE AMINOTRANSFERASE 13 U/L (12-78); ALBUMIN/GLOBULIN RATIO 0.7 (1.1-1.5); ALKALINE PHOSPHATASE 94 IU/L (46-116); ANION GAP 10 (8-16); ASPARTATE AMINO TRANSFERASE 14 U/L (10-37); BILIRUBIN,TOTAL 0.5 MG/DL (0.1-1.0); BLOOD UREA NITROGEN 19 MG/DL (7-18); BUN/CREATININE RATIO 13.8 (10.0-20.0); CALCIUM 9.1 MG/DL (8.5-10.1); CHLORIDE 107 MMOL/L (99-107); CREATININE 1.38 MG/DL (0.60-1.10); GLUCOSE 177 MG/DL (70-104); MAGNESIUM 1.9 MG/DL (1.5-2.4); POTASSIUM 4.1 MMOL/L (3.5-5.1); SODIUM 143 MMOL/L (135-145); TOTAL CARBON DIOXIDE 25.7 MMOL/L (24-32); TOTAL PROTEIN 7.1 G/DL (6.4-8.2); eCRCL 66 ML/MIN; eGFR 53 ML/MIN
[2023-08-03 11:58] LABS: BILIRUBIN,URINE NEGATIVE (Neg); CLARITY,URINE SLIGHTLY CLOUDY (Clear); COLOR,URINE YELLOW (Yellow); GLUCOSE, URINE NEGATIVE (Neg); KETONES,URINE NEGATIVE (Neg); LEUKOCYTE ESTERASE ,URINE SMALL (Neg); NITRITES, URINE POSITIVE (Neg); OCCULT BLOOD,URINE TRACE-INTACT (Neg); PROTEIN,URINE 100 mg/dl (Neg)
[2023-08-03 12:19] LABS: UA COLLECTION TYPE CLN CATCH MIDSTREAM
[2023-08-03 12:20] LABS: WBC,URINE TNTC /HPF (0-4)
[2023-08-03 12:21] LABS: BACTERIA,URINE 4+ /HPF (Neg); MUCUS STRANDS NONE SEEN /LPF (Neg); RBC,URINE 0-2 /HPF (0-2); SQUAMOUS EPITHELIAL CELL,UR MODERATE /LPF (FEW); WBC CLUMPS,URINE MODERATE /HPF (NEGATIVE)
[2023-08-03] MEDS ORDERED: CefTRIAXone 1000mg IM Kit (w/lidocaine diluent) IM ONE (13:00)
[2023-08-03] MEDS ORDERED: CEPH-585 PO ×3 (13:02→13:19)
[2023-08-03 13:27] VITALS: BP 160/98; PULSE 73; RESP 18; TEMP 98.3; O2SAT 98
== END 2023-08-03 13:29 | disposition home or self-care (01) ==
LOC: ER 08:30
DX: N39.0 Urinary tract infection, site not specified (principal); Z20.822 Contact with and (suspected) exposure to COVID-19; I10 Essential (primary) hypertension; E11.9 Type 2 diabetes mellitus without complications; E03.9 Hypothyroidism, unspecified; Z86.14 Personal history of Methicillin resistant Staphylococcus aureus infection; Z88.5 Allergy status to narcotic agent
CPT/HCPCS: 36415; 80053; 81001; 83605; 83735; 84145; 85025; 87040; 87077; 87088; 87186; 87811; 96372; 99283; J0696

== ENCOUNTER 2023-09-27 16:36 | Emergency (ER) | payer OTHER ==
[~2023-09-27] VITALS: Ht 188 cm; Wt 172.3 kg
[~2023-09-27 16:36] MED LIST changes: +CEPH-585 PO
[2023-09-27 16:50] VITALS: BP 181/98; PULSE 72; TEMP 97.8; O2SAT 99
[2023-09-27] MEDS ORDERED: dexamethasone sod phosphate 10mg/ml inj PO STA (16:56)
[2023-09-27 17:11] VITALS: RESP 18
--- NOTE | 2023-09-27 17:46 | NUR ---
I have reviewed and agree with all interventions, assessments performed and documented by EYAL Gaspar.
== END 2023-09-27 17:47 | disposition home or self-care (01) ==
LOC: ER 16:38
DX: T65.91XA Toxic effect of unspecified substance, accidental (unintentional), initial encounter (principal); I10 Essential (primary) hypertension; E11.9 Type 2 diabetes mellitus without complications; E03.9 Hypothyroidism, unspecified; M19.90 Unspecified osteoarthritis, unspecified site; Z88.5 Allergy status to narcotic agent; Z79.899 Other long term (current) drug therapy; Y92.89 Other specified places as the place of occurrence of the external cause
CPT/HCPCS: 99283; J1100

== ENCOUNTER 2025-04-24 14:00 | Inpatient (IN) | payer BC, OTHER ==
[~2025-04-24] VITALS: Ht 188 cm; Wt 162.3 kg
--- NOTE | 2025-04-24 14:16 | ELECTROCARDIOGRAPH REPORT ---
[facility] Test Date: 2025-04-24 Test Time: 14:02:08 Pat Name: ALDEN RUVALCABA Department: EMERGENCY ROOM Room: Gender: M Art Critic: : 1965 Requested By: DARIUS THOMSON Order Number: [id number] Reading MD: Measurements Intervals [place] Rate: 71 P: 34 AK: 183 QRS: 90 QRSD: 118 T: 129 QT: 492 QTc: 535 Interpretive Statements Sinus rhythm Incomplete right bundle branch block Low voltage, precordial leads Abnormal T, consider ischemia, lateral leads Please click the below link to view image of tracing.
[2025-04-24 14:35] LABS: BASOPHILS # (AUTO) 0.1 X10'3 (0-0.2); BASOPHILS % (AUTO) 1.3 % (0-1); EOSINOPHILS # (AUTO) 0.6 X10'3 (0-0.9); EOSINOPHILS % (AUTO) 6.7 % (0-6); HEMOGLOBIN 16.2 g/dl (14.0-17.9); LYMPHOCYTES # (AUTO) 1.7 X10'3 (1.1-4.8); LYMPHOCYTES % (AUTO) 19.4 % (21-51); MEAN CORPUSCULAR HEMOGLOBIN 31.3 PG (27.0-31.0); MEAN CORPUSCULAR HGB CONC 33.6 g/dL (33.0-36.5); MEAN CORPUSCULAR VOLUME 93.1 FL (78-98); MEAN PLATELET VOLUME 8.7 FL (7.4-10.4); MONOCYTES # (AUTO) 0.7 X10'3 (0-0.9); MONOCYTES % (AUTO) 8.4 % (2-12); NEUTROPHILS # (AUTO) 5.5 X10'3 (1.8-7.7); NEUTROPHILS % (AUTO) 64.2 % (42-75); PLATELET COUNT 244 X10'3 (140-440); RED BLOOD COUNT 5.16 X10'6 (4.70-6.10); RED CELL DISTRIBUTION WIDTH 13.4 % (11.5-14.5); WHITE BLOOD COUNT 8.6 X10'3 (4.5-11.0)
--- NOTE | 2025-04-24 14:40 | RADIOLOGY REPORT ---
EXAM: DI CHEST,SINGLE VIEW HISTORY: CP COMPARISON: Chest x-ray dated 08/02/2023 was not made available on the PACS system for viewing. TECHNIQUE: PA upright views of the chest were performed. FINDINGS: No pneumothorax, consolidative infiltrates, or pulmonary edema. The heart is not enlarged. There are postoperative changes of median sternotomy. There is an old healed fracture of the right mid clavicle . IMPRESSION: Postoperative changes of the heart without evidence of acute intrathoracic process.
[2025-04-24 15:07] LABS: ALBUMIN 3.5 G/DL (3.4-5.0); ANION GAP 11 (8-16); BLOOD UREA NITROGEN 37 MG/DL (7-18); BUN/CREATININE RATIO 19.3 (10.0-20.0); CALCIUM 8.8 MG/DL (8.5-10.1); CHLORIDE 110 MMOL/L (99-107); CREATININE 1.92 MG/DL (0.60-1.10); GLUCOSE 198 MG/DL (70-104); POTASSIUM 4.5 MMOL/L (3.5-5.1); PRO BRAIN NATRIURETIC PEPTIDE 8053 PG/ML (0-125); SODIUM 145 MMOL/L (135-145); TOTAL CARBON DIOXIDE 23.8 MMOL/L (24-32); eCRCL 46 ML/MIN; eGFR 36 ML/MIN
--- NOTE | 2025-04-24 15:44 | Physician Documentation ---
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 He is worse with lying flat. No chest pain. He also endorses lower extremity swelling Medication Reconciliation Allergies: Coded Allergies: morphine (Verified Allergy, Unknown, 09/27/23) Scheduled Aspirin (Ecotrin*), 1 TAB PO DAILY, (Reported) Atorvastatin Calcium (Atorvastatin Calcium), 1 TAB PO HS, (Reported) Glimepiride* (Amaryl*), 1 TAB PO BID, (Reported) Levothyroxine Sodium (Levothyroxine Sodium), 1 TAB PO QAM, (Reported) Levothyroxine Sodium (Levothyroxine Sodium), 1 TAB PO QAM, (Reported) Lisinopril (Lisinopril), 1 TAB PO DAILY, (Reported) Magnesium (Magnesium Oxide), 1 TAB PO DAILY, (Reported) Magnesium Oxide (Magnesium Oxide), 1 TAB PO DAILY, (Reported) Metformin HCl (Metformin HCl), 1 TAB PO Q12H, (Reported) Metformin* (Glucophage*), 1 TAB PO TIDWM, (Reported) Metoprolol Tartrate (Lopressor tablet), 25 MG PO Q12H Discontinued Medications Amiodarone Hcl (Cordarone), 400 MG PO BID Discontinued Reason: patient no longer taking Amiodarone Hcl (Cordarone), 1 TAB PO DAILY Discontinued Reason: patient no longer taking Cephalexin*Monohydrate* (Keflex*), 1 CAP PO QID Discontinued Reason: patient no longer taking Duloxetine HCl (Duloxetine HCl), 2 CAP PO DAILY, (Reported) Discontinued Reason: patient no longer taking Furosemide (Lasix), 40 MG PO DAILY Discontinued Reason: patient no longer taking Hydrocodone Bit/Acetaminophen (Hydrocodon-Acetaminophn 10-325 tablet), 1 TAB PO Q4H PRN for MODERATE PAIN 4-6 Discontinued Reason: patient no longer taking Linagliptin (Tradjenta), 1 TAB PO DAILY, (Reported) Discontinued Reason: patient no longer taking Pantoprazole Sodium (Pantoprazole Sodium), 40 MG PO BKF Discontinued Reason: patient no longer taking Potassium Chloride (K-Dur), 10 MEQ PO DAILY Discontinued Reason: patient no longer taking Past Medical History Past Medical History: Hypertension, Sleep Apnea, Diabetes, Hypothyroidism, Arthritis, *DERMATOLOGY*, Cellulitis, Psoriasis, MRSA Abscess Past Surgical History: other Other Past Surgical History: fasciotomy Alcohol Use: None Drug Use: none Lives with: Other Lives In: Home Occupation: employed Review of Systems All Other Systems at this time: Reviewed and Negative Constitutional: Denies: fever Respiratory: Reports: orthopnea, shortness of breath, SOB with exertion; Denies: cough, SOB at rest Cardiovascular: Denies: chest pain Gastrointestinal: Denies: abdomen distended, abdominal pain, nausea, vomiting Physical Exam Vital Signs: Temperature: 97.1, Source: Temporal, Heart Rate: 68, Respiratory Rate: 18, BP: 104/55, Pulse Oximetry: 97, Weight: 162.300 Oxygen Flow Rate: 0 Physical Exam Well-appearing no distress resting comfortably in bed No JVD Moist mucous membranes Bibasilar crackles Cardiac no murmur Abdomen is soft nontender Lower extremity 1+ pitting edema bilaterally Awake alert oriented Progress Results/Orders Results/Orders Orders - SWEETIE MCCANN MD Heparin 10,000 Unit/Ml 1ml (Heparin 10,0 (04/24/25 16:25) Page Hospitalist (04/24/25 16:25) Fill Out Med Reconciliation (04/24/25 16:25) Completed Orders - SWEETIE MCCANN MD Aspirin 81mg Chew Tablet (Aspirin 81mg C (04/24/25 16:25) Pt Inr (04/24/25 16:24) PTT (04/24/25 16:24) Heparin 10,000 Unit/Ml 1ml (Heparin 10,0 (04/24/25 16:25) Heparin 25,000 Unit/250ml Bag (Heparin 2 (04/24/25 16:25) Furosemide 20mg Inj (Lasix Inj) (04/24/25 16:25) Medications Received in ER Medications (Trade) Dose Ordered Sig/Ruby Route PRN Reason Start Time Stop Time Status Last Admin Dose Admin (aspirin 81MG chew tablet) 324 mg ONCE ONCE PO 04/24/25 16:25 04/24/25 16:28 DC 04/24/25 16:35 324 MG (heparin 10,000 unit/ml 1ml inj) 4,000 units ONCE ONCE IV 04/24/25 16:25 04/24/25 16:34 DC 04/24/25 17:38 4,000 UNITS (Lasix inj) 60 mg ONCE ONCE IV 04/24/25 16:25 04/24/25 16:27 DC 04/24/25 16:35 60 MG Vital Signs 04/24/25 04/24/25 04/24/25 14:10 15:28 16:43 Temp 97.1 Pulse 73 68 61 Resp 18 18 16 B/P (MAP) 120/73 104/55 (71) 116/67 (83) Pulse Ox 96 97 98 O2 Flow Rate 0 0 Laboratory Tests Test 04/24/25 14:13 04/24/25 16:28 White Blood Count 8.6 Red Blood Count 5.16 Hemoglobin 16.2 Hematocrit 48.0 Mean Corpuscular Volume 93.1 Mean Corpuscular Hemoglobin 31.3 H Mean Corpuscular Hemoglobin Concent 33.6 Red Cell Distribution Width 13.4 Platelet Count 244 Mean Platelet Volume 8.7 Neutrophils (%) (Auto) 64.2 Lymphocytes (%) (Auto) 19.4 L Monocytes (%) (Auto) 8.4 Eosinophils (%) (Auto) 6.7 H Basophils (%) (Auto) 1.3 H Neutrophils # (Auto) 5.5 Lymphocytes # (Auto) 1.7 Monocytes # (Auto) 0.7 Eosinophils # (Auto) 0.6 Basophils # (Auto) 0.1 CBC Comment Prothrombin Time 10.3 INR International Normalized Ratio 1.0 Activated Partial Thromboplast Time 26 Coagulation Comments Sodium Level 145 Potassium Level 4.5 Chloride Level 110 H Carbon Dioxide Level 23.8 L Anion Gap 11 Blood Urea Nitrogen 37 H Creatinine 1.92 H Estimated GFR/1.73 m2 36 BUN/Creatinine Ratio 19.3 Glucose Level 198 H Hemoglobin A1c 7.4 H Calcium Level 8.8 Troponin I High Sensitivity 611 *H 543 *H Pro-B-Type Natriuretic Peptide 8053 H Albumin 3.5 Chemistry Comments Troponin I High Sens Percent Delta 11 Troponin I Hi Sens Absolute Change -68 EKG/XRAY/CT/US/VASC/MRI EKG : Additional Comment EKG independently interpreted by myself time 2:02 p.m. indication dyspnea normal sinus rhythm rate 71 normal axis QTC prolongation 535 milliseconds nonspecific lateral T-wave abnormalities T-wave inversions in leads 1 and V 2 not present on prior Heart Score: Heart Score Response (Comments) Value History Slightly Suspicious 0 EKG Repolarization Disturb 1 Age 45-64 1 Risk Factors >3 or Hx ASHD 2 Troponin >3 x's Normal limit 2 Total 6 Medical Decision Making Additional info obtained from: old records Findings Reviewed discharge summary June 2023 CAD elective CABG June 2023 Dr. Funk Differential Dx:Considerations: Include: CHF, COPD Additional Infomation Acute coronary syndrome Departure Disposition: ADMITTED INPATIENT Admitted to Inpatient Unit: to hospitalist Impression: Primary Impression: NSTEMI (non-ST elevated myocardial infarction) Additional Impression: Acute on chronic diastolic heart failure Referrals: NO PRIMARY CARE PROVIDER (PCP) Critical Care Note Total Time (mins): 30 Critical Care Note The very real possibility of a deterioration of this patient's condition required the highest level of my preparedness for sudden, emergent intervention. I provided critical care services, which included medication orders, frequent reevaluations of the patient's condition and response to treatment, ordering and reviewing test results, and discussing the case with various consultants. Excludes time spent performing separately billable procedures. The critical care time associated with the care of the patient was 30 minutes in the acute management of NSTEMI requiring heparin Signature Scribe Signature: [email or web address] Attestation: SWEETIE Whitlock MD Apr 24, 2025 15:44
[2025-04-24] MEDS ORDERED: heparin 25,000 UNIT/250ml bag 250 ML IV PRN (16:25)
[2025-04-24] MEDS: aspirin 81mg tab.chew PO ONE (16:35)
[2025-04-24] MEDS: furosemide 20 MG/2 ML vial IV ONE (16:35)
[2025-04-24] MEDS ORDERED: LISI20TA28 PO (16:42)
[2025-04-24] MEDS ORDERED: GLU850T PO (16:42)
[2025-04-24] MEDS ORDERED: MAGN200T5 PO (16:42)
[2025-04-24 16:48] LABS: APTT 26 SECONDS (22-32); PROTHROMBIN TIME 10.3 SECONDS (9.0-12.0)
[2025-04-24] MEDS: MESSAGE TO NURSING IV ONE (17:27)
[2025-04-24] MEDS: heparin 10,000 units/1 ML INJ IV ONE (17:38)
[2025-04-24] MEDS: heparin 25,000 UNIT/250ml bag 250 ML IV PRN (17:39)
[2025-04-24] MEDS ORDERED: magnesium Cl slow-release 64mg tablet PO PRN (17:50)
[2025-04-24] MEDS ORDERED: morphine 2 MG/ML inj. syringe IV PRN (17:50)
[2025-04-24] MEDS ORDERED: potassium Cl 40MEQ/1/2NS 520ml 520 ML IV PRN (17:50)
[2025-04-24] MEDS ORDERED: acetaminophen 325mg tablet PO PRN (17:50)
[2025-04-24] MEDS ORDERED: magnesium sulf-water 2g/50mL 50 ML IV PRN (17:50)
[2025-04-24] MEDS ORDERED: mag hydrox/Alum hydrox/simeth 30ml oral suspension PO PRN (17:50)
[2025-04-24] MEDS ORDERED: magnesium hydroxide 30ml (MOM) UD suspension PO PRN (17:50)
[2025-04-24] MEDS ORDERED: potassium Cl 20 mEq SR tablet PO PRN ×2 (17:50)
[2025-04-24] MEDS ORDERED: ondansetron/PF 4mg/2ml inj IV PRN (17:50)
[2025-04-24] MEDS ORDERED: magnesium sulf-water 4G/100mL 100 ML IV PRN (17:50)
[2025-04-24] MEDS: PERFLUTREN PROTEIN-A MICROSPHR (Optison) 0.22 MG/ML 3ML VIAL IV ONE (18:09)
--- NOTE | 2025-04-24 18:25 | HISTORY AND PHYSICAL-Residence ---
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 T2DM, ROSITA, BMI 45.9, class three obesity, hypothyroidism, COPD, hx of post surgical paroxysmal AFib, hx of extensive perineal necrotizing fasciitis, DVT Legs in 1998, history of MRSA abscess, cellulitis presented with the acute on chronic shortness of breath, lightheadedness dizziness, chest pressure over 2-3 weeks. His current PCP is Dr Brody hWeat at [place]. 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 He dose not have to use any supplemental oxygen at home. He is fully ambulatory without using any walking aids. He started noticing that his shortness of breaths over 2-3 weeks which are getting worse within last three days. He even have shortness of breaths on resting, has to sleep with incliner or sitting up for his ROSITA, and denies PND and bilateral progressive pedal swelling. He noticed about the central chest pressure like heaviness, lasted for 15 mins, no radiating, which was associated with the sweating, lightheadness and dizziness. He is driving a truck all the time, and currently has to spend most of his time in his truck. He denies currently taking any blood thinners except for the ASA, denies symptoms of hemoptysis, peripheral chest pain. No recent diagnosis of cancer and treatment. He committed that he has been sober drugs for since 10 years back but started re used meth again and last time was on Last Tuesday. He dose not believe that meth triggered his symptoms at that moment. Allergies: Coded Allergies: morphine (Verified Allergy, Unknown, 09/27/23) Home Medications Home Medications Active Lopressor tablet (Metoprolol Tartrate) 25 Mg Tablet 25 Mg PO Q12H 30 Days Hold for SBP below 100mm Hg Hold for Heart Rate below 60. Reported Lisinopril 20 Mg Tablet 1 Tab PO DAILY 30 Days Magnesium Oxide (Magnesium) 200 Mg Tablet 1 Tab PO DAILY 30 Days Glucophage* (Metformin HCl) 850 Mg Tablet 1 Tab PO TIDWM Ecotrin* (Aspirin) 81 Mg Tablet.dr 1 Tab PO DAILY 30 Days Atorvastatin Calcium 40 Mg Tablet 1 Tab PO HS Amaryl* (Glimepiride) 4 Mg Tablet 1 Tab PO BID Levothyroxine Sodium 200 Mcg Tablet 1 Tab PO QAM TAKE WITH 75 MCG LEVOTHYROXINE FOR TOTAL OF 275 MCG Levothyroxine Sodium 75 Mcg Tablet 1 Tab PO QAM TAKE WITH 200 MCG LEVOTHYROXINE FOR TOTAL OF 275 MCG Magnesium Oxide 400 Mg Tablet 1 Tab PO DAILY Metformin HCl 1,000 Mg Tablet 1 Tab PO Q12H 30 Days Past Medical History Past Medical History CAD, s/p 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 T2DM, ROSITA, BMI 45.9, class three obesity, hypothyroidism, COPD, hx of post surgical paroxysmal AFib, hx of extensive perineal necrotizing fasciitis, DVT Legs in 1998 Past Surgical History Surgical History Comment Not significant pertinent history Past Social History Social History Comment His current PCP is Dr Brody Wheat at [place]. 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 He dose not have to use any supplemental oxygen at home. He is fully ambulatory without using any walking aids. He committed that he has been sober drugs for since 10 years back but started re used meth again and last time was on Last Tuesday. He dose not believe that meth triggered his symptoms at that moment. Alcohol Use: None Drug Use: None Lives with: Other Lives In: Home Occupation: employed Exam Vitals: Vital Signs Date Time Temp Pulse Resp B/P (MAP) Pulse Ox O2 Delivery O2 Flow Rate FiO2 04/24/25 17:42 69 15 116/65 (82) 98 0 04/24/25 14:10 97.1 General: General: Obese, Well alert, well oriented, not confused, not agitated, not in acute distress, well cooperated during the physical. HEENT: HEENT: Conjunctive are pink, sclerae clear, no icterus, pupil is equal in both sides, reactive to light, no ear discharge, no pharyngeal erythema or an edema, mouth and lips are dry. Neck: Neck: Supple, no JVD, no lymphadenopathy and thyromegaly. Chest: Lungs:Equal air entry on both lungs, no additional sounds Cardiovascular: Heart: S1-S2 regular sinus rhythm and, regular rate, no gallops, no rubs, no murmurs Abdomen: Abdomen: No visible peristalsis, Bowel sounds present on auscultation, soft, nontender, no guarding, no rigidity, he showed me the extensive post fasciotmy scar up to his left ASIS area for his necrotizing fasciatitis hx which is still having gap in between. Extremities: Extremities: No obvious deformities, generalized 1+ pitting edema bilaterally, capillary refill intact, able to wiggle toes both sides, peripheral pulsations are intact on both sides Central Nervous System: CLOTHES PRESSER: No focal neurological deficits, no motor and sensory weakness in all 4 extremities, could move all 4 extremities Musculoskeletal: Musculoskeletal: No joint swelling, deformities, inflammations, and no scoliosis and back tenderness Skin: Skin: No active skin lesions and rashes Diagnostic Data Last Recorded Lab Results: 04/24/25 1413 04/24/25 1413 Diagnostic Data: Laboratory Tests Test 04/24/25 14:13 Prothrombin Time 10.3 SECONDS (9.0-12.0) INR International Normalized Ratio 1.0 INR Activated Partial Thromboplast Time 26 SECONDS (22-32) Coagulation Comments Counseling Services Smoking & Tobacco Cessation: > 10 Minutes Advance Care Planning Advanced Care plannin - 30 Minutes Additional Plan 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 T2DM, ROSITA, BMI 45.9, class three obesity, hypothyroidism, COPD, hx of post surgical paroxysmal AFib, hx of extensive perineal necrotizing fasciitis, DVT Legs in 1998, history of MRSA abscess, cellulitis presented with the acute on chronic shortness of breath, lightheadedness dizziness, chest pressure over 2-3 weeks. # Unstable Angina, to rule out ACS # Dyspnea # Hx of CAD # s/p CABG x 5 # Hx of substance abuse (tobacco, amphetamine), currently back on Meth use -EKG showed T inversion at V1-V2 -Unstable atypical angina -Trops- 611,543, 573 -CXR - Postoperative changes of the heart without evidence of acute intrathoracic process. -no hypoxia, no tachycardia -Well's criteria for Acute PE showed 1.5 low risk with hx of DVT, pending D Dimer to rule out acute PE in the setting of DVT hx in 1998 -elevated proBNP with no active signs and symptoms of fluid retention/CHF exacerbation at the moment, hold Lasix therapy -not anemic -currently on the IV Heparin -consulted with Cardiology, Cindi BEST. she will be seeing pt tomorrow, continue IV Heparin -med rec done, continue metoprolol, lisinopril, aspirin, atorvastatin, started Jardiance 10 daily and will consider to started Plavix if no procedure will be planned -pending 2D echocardiogram, last time echocardiogram in 2022 showed LVEF 55%, systolic function normal, mild concentric LV hypertrophy, normal LA, trace MR, TR, no pericardial effusion. -Drug screen urine is pending, and will consider for the substance navigation after that. -educated about the possible link between recent meth use and current ACS symtoms and possible consequences on the continuous use -continuous telemetry monitoring for possible AFib # REY possibly from the pre renal - renal tubular stasis -BUN 37, creatinine 1.92, his baseline was around one- five years ago -order serum osmolality, urine osmolality, urine sodium and creatinine for possible etiology of REY -Hold IV Fluid therapy for now until Echo resulted # T2DM # HTN # HLD # class three obesity BMI 45.9 # ROSITA -pt stated that his last HbA1C a year ago was around 6, but in the record in 2022 was 11.2 -pending HbA1C TSH and Lipid profile -He refused to have the Insulin therapy as 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 acetaminophen/ IV morphine as needed, SL NTG for CP as prn Lines/tubes: PIV GI prophylaxis: Protonix Nutrition: NPO after midnight, heart healthy with 75 g carb controlled Prognosis: Guarded Disposition: Continue medical management GDM T, IV heparin, follow up with Cardiology in the morning, consult with Dr Schilling or pewter caster anesthesiology resident for the urgents, NPO after midnight for the possible procedure stress test versus coronary angiography, PT eval and DC Plan, social support for his social situations. Resident attestation: Patient was seen, examined and discussed with attending , Dr. Whitney ARIAS MD Internal Medicine Resident, PGY2 [facility] Date of Service: Apr 24, 2025 Billing Provider: BECK MICHAEL MD, TIN, RES Apr 24, 2025 18:25
[2025-04-24 18:49] LABS: HEMOGLOBIN A1C 7.4 % (4.5-6.2)
[2025-04-24 18:56] LABS: D-DIMER 0.68 MG/L FEU (0-0.50)
[2025-04-24 19:12] LABS: OSMOLALITY 319 MOSM/K (280-300)
[2025-04-24 19:16] LABS: THYROID STIMULATING HORMONE 5.42 ulU/ml (0.34-4.50)
[2025-04-24 19:19] LABS: ETHANOL < 10 MG/DL (<10)
[2025-04-24] MEDS: docusate sod 100mg capsule PO SCH (19:57)
[2025-04-24] MEDS: metFORMIN 500mg tablet PO SCH (19:59)
[2025-04-24] MEDS: pantoprazole 40mg Tablet.DR PO SCH (19:59)
[2025-04-24] MEDS: metoprolol tartrate 12.5mg (1/2 tablet) PO SCH (19:59)
[2025-04-24] MEDS: K and/or MAG REPLACEMENT MC SCH (20:00)
[2025-04-24] MEDS: EMPAGLIFLOZIN 10 MG TABLET PO SCH (20:00)
[2025-04-24] MEDS: atorvastatin 20mg tablet PO SCH (22:21)
[2025-04-25] VITALS (11 sets, daily range): BP systolic 98–129; BP diastolic 58–82; PULSE 62–85; RESP 12–19; TEMP 97–97.8; O2SAT 94–100
[2025-04-25] MEDS: MESSAGE TO NURSING IV ONE ×3 (00:06→15:48)
[2025-04-25] MEDS: morphine 2 MG/ML inj. syringe IV PRN (00:09)
[2025-04-25 00:38] LABS: BILIRUBIN,URINE NEGATIVE (Neg); CLARITY,URINE CLEAR (Clear); COLOR,URINE YELLOW (Yellow); GLUCOSE, URINE >=1000 mg/dl (Neg); KETONES,URINE NEGATIVE (Neg); LEUKOCYTE ESTERASE ,URINE NEGATIVE (Neg); NITRITES, URINE NEGATIVE (Neg); OCCULT BLOOD,URINE TRACE-INTACT (Neg); PH,URINE 5.5 (4.8-8.0); PROTEIN,URINE NEGATIVE (Neg); UROBILINOGEN,URINE 0.2 E.U/dL (0.2-1.0)
[2025-04-25 00:39] LABS: UA COLLECTION TYPE URINAL
[2025-04-25 00:44] LABS: BACTERIA,URINE NONE SEEN /HPF (Neg); RBC,URINE 0-2 /HPF (0-2); SQUAMOUS EPITHELIAL CELL,UR FEW /LPF (FEW); WBC,URINE 0-4 /HPF (0-4)
[2025-04-25 01:51] LABS: URINE AMPHETAMINE SCREEN POSITIVE (Neg); URINE BARBITUATE SCREEN NEGATIVE (Neg); URINE BENZODIAZEPINES SCREEN NEGATIVE (Neg); URINE CANNABINOID SCREEN NEGATIVE (Neg); URINE COCAINE SCREEN NEGATIVE (Neg); URINE METHADONE SCREEN NEGATIVE (Neg); URINE OPIATE SCREEN NEGATIVE (Neg); URINE PHENCYCLIDINE SCREEN NEGATIVE (Neg)
[2025-04-25 06:39] LABS: BASOPHILS # (AUTO) 0.1 X10'3 (0-0.2); BASOPHILS % (AUTO) 1.4 % (0-1); EOSINOPHILS # (AUTO) 0.4 X10'3 (0-0.9); EOSINOPHILS % (AUTO) 8.6 % (0-6); HEMATOCRIT 45.7 % (42.0-52.0); HEMOGLOBIN 15.2 g/dl (14.0-17.9); LYMPHOCYTES # (AUTO) 1.3 X10'3 (1.1-4.8); LYMPHOCYTES % (AUTO) 25.7 % (21-51); MEAN CORPUSCULAR HEMOGLOBIN 31.3 PG (27.0-31.0); MEAN CORPUSCULAR HGB CONC 33.3 g/dL (33.0-36.5); MEAN PLATELET VOLUME 8.1 FL (7.4-10.4); MONOCYTES # (AUTO) 0.4 X10'3 (0-0.9); MONOCYTES % (AUTO) 8.7 % (2-12); NEUTROPHILS # (AUTO) 2.9 X10'3 (1.8-7.7); NEUTROPHILS % (AUTO) 55.6 % (42-75); PLATELET COUNT 194 X10'3 (140-440); RED BLOOD COUNT 4.86 X10'6 (4.70-6.10); RED CELL DISTRIBUTION WIDTH 13.2 % (11.5-14.5); WHITE BLOOD COUNT 5.2 X10'3 (4.5-11.0)
[2025-04-25 07:06] LABS: ALANINE AMINOTRANSFERASE 22 U/L (12-78); ALBUMIN 3.2 G/DL (3.4-5.0); ALBUMIN/GLOBULIN RATIO 1.1 (1.1-1.5); ALKALINE PHOSPHATASE 96 IU/L (46-116); ANION GAP 11 (8-16); ASPARTATE AMINO TRANSFERASE 25 U/L (10-37); BILIRUBIN,TOTAL 0.6 MG/DL (0.1-1.0); BLOOD UREA NITROGEN 32 MG/DL (7-18); BUN/CREATININE RATIO 19.6 (10.0-20.0); CALCIUM 8.5 MG/DL (8.5-10.1); CHLORIDE 110 MMOL/L (99-107); CHOL/HDL RATIO 3.1 (0.00-4.99); CHOLESTEROL 132 MG/DL (0-200); CREATININE 1.63 MG/DL (0.60-1.10); GLUCOSE 104 MG/DL (70-104); HDL CHOLESTEROL 42 MG/DL (35-60); LDL CHOLESTEROL 64 MG/DL (50-100); MAGNESIUM 2.1 MG/DL (1.5-2.4); POTASSIUM 3.9 MMOL/L (3.5-5.1); SODIUM 147 MMOL/L (135-145); TOTAL CARBON DIOXIDE 26.4 MMOL/L (24-32); TRIGLYCERIDES 117 MG/DL (20-135); eCRCL 55 ML/MIN; eGFR 43 ML/MIN
[2025-04-25] MEDS: lisinopril 20mg tablet PO SCH (08:00)
[2025-04-25] MEDS ORDERED: non-formulary drug (Levothyroxine Sodium 1 TAB) PO SCH (08:00)
[2025-04-25] MEDS: aspirin 81mg, enteric-coated 1 TAB TABLET.DR PO SCH (08:14)
[2025-04-25] MEDS: levoTHYROXINE 75mcg tablet PO SCH (08:14)
[2025-04-25] MEDS: heparin 10,000 units/1 ML INJ IV PRN (15:49)
[2025-04-25] MEDS: nitroGLYCERIN 0.4mg SUBLingual tab SL PRN (16:06)
--- NOTE | 2025-04-25 16:07 | ELECTROCARDIOGRAPH REPORT ---
[facility] Test Date: 2025-04-25 Test Time: 16:05:53 Pat Name: ALDEN RUVALCABA Department: [facility] Patient ID: [facility]-[id number] Room: [place] [id number] A Gender: M Fishing Captain: : 1965 Requested By: ALYSSA VERONICA Order Number: [id number] Reading MD: Dr. Ion Pederson Measurements Intervals Lovilia Rate: 70 P: 38 WA: 193 QRS: 73 QRSD: 120 T: 85 QT: 472 QTc: 510 Interpretive Statements Sinus rhythm Abnormal R-wave progression, delayed precordial transition Nonspecific intraventricular conduction delay Nonspecific T abnormalities, anterior leads Electronically Signed On 04-26-2025 8:25:[address] Ion Pederson Please click the below link to view image of tracing.
--- NOTE | 2025-04-25 16:19 | CONSULTATION REPORT ---
History of Present Illness Providers to CC CC: MAURICIO SCHILLING MD ~ Reason for Admit\Admit Dx: Cardiology consultation Refering MD: Toya Medical History of Present Illness This is a 60-year-old male with multiple cardiovascular risk factors including history of coronary artery disease and CABG, diabetes mellitus, sleep apnea, obesity. He presented secondary to increased shortness for breath and orthopnea over the past 2-3 weeks as well as chest heaviness that is intermittent in the upper chest with associated shortness for breath, diaphoresis, nausea and palpitations. Reports increased stress in his life over the past six months. He is homeless. Use methamphetamine over the weekend. Reports not usually using meth that had a relapse. Was asked, but otherwise denies review of systems. Allergies: Coded Allergies: No Known Allergies (Unverified , 04/25/25) Home Medications Home Medications Active Lopressor tablet (Metoprolol Tartrate) 25 Mg Tablet 25 Mg PO Q12H 30 Days Hold for SBP below 100mm Hg Hold for Heart Rate below 60. Reported Lisinopril 20 Mg Tablet 1 Tab PO DAILY 30 Days Magnesium Oxide (Magnesium) 200 Mg Tablet 1 Tab PO DAILY 30 Days Glucophage* (Metformin HCl) 850 Mg Tablet 1 Tab PO TIDWM Ecotrin* (Aspirin) 81 Mg Tablet.dr 1 Tab PO DAILY 30 Days Atorvastatin Calcium 40 Mg Tablet 1 Tab PO HS Amaryl* (Glimepiride) 4 Mg Tablet 1 Tab PO BID Levothyroxine Sodium 200 Mcg Tablet 1 Tab PO QAM TAKE WITH 75 MCG LEVOTHYROXINE FOR TOTAL OF 275 MCG Levothyroxine Sodium 75 Mcg Tablet 1 Tab PO QAM TAKE WITH 200 MCG LEVOTHYROXINE FOR TOTAL OF 275 MCG Magnesium Oxide 400 Mg Tablet 1 Tab PO DAILY Metformin HCl 1,000 Mg Tablet 1 Tab PO Q12H 30 Days Past Medical History Medical History Comment Coronary artery disease with history CABG May 2023 Brief postop atrial fibrillation Dyslipidemia Diabetes mellitus with hemoglobin A1c 7.4 COPD Obstructive sleep apnea Obesity Thoracic aortic aneurysm made during 4.5 cm by echo in the past Necrotizing fasciitis of the perineal area back in 1998 requiring multiple surgeries DVT in 1998 Hypothyroidism Past Surgical History Surgical History Comment Coronary artery bypass May 2023 ARAUZ to LAD, sequential SVG to OM1/OM2, sequential SVG to PDA and posterolateral branch Incision and drainage x9 for necrotizing fasciitis Orthopedic surgery Past Social History Social History Comment History of tobacco use quit 4-5 years ago. Denies alcohol use. He has a history of methamphetamine use. Reports being clean for 10 years but relapsed this weekend. He is homeless currently after a recent divorce. Physical Exam Last Vital Signs Recorded: RN Vital Signs have been reviewed: Yes, Temperature: 97.6, Source: Temporal, Heart Rate: 64, Respiratory Rate: 18, BP: 116/70, Pulse Oximetry: 100, Weight: 162.300 Physical Exam General: Awake, alert, oriented. No apparent distress Neck: Supple. Normal range of motion. No JVD Respiratory: Lungs are clear and diminished to auscultation bilaterally. No respiratory distress. Chest: Normal shape and size. No accessory muscle use. Cardiovascular: Regular rate and rhythm. S1-S2. No murmur, gallop, rub. Gastrointestinal: Abdomen is soft, large. Nontender to palpation. Bowel sounds present. Extremities: No lower extremity edema, cyanosis or clubbing. He has compression stockings on Neurologic: Alert and oriented x4. Nonfocal Psychiatric: Normal mood and affect. Skin: Normal color. Warm and dry. Review of Systems All Other Systems at this time: Reviewed and Negative ROS Patient complains of chest heaviness intermittent with associated shortness for breath, diaphoresis, nausea and palpitations. He complains of increased shortness for breath and orthopnea over the past 2-3 weeks. Complains of increased stress. Denies recent illness, fevers or chills. Denies lower extremity edema. Denies dizziness, lightheadedness or syncope. Was asked, but otherwise denies review of systems. Results EKG EKG Sinus rhythm incomplete right bundle-branch block. Nonspecific ST changes Echocardiogram Echocardiogram Preliminary echocardiogram demonstrates preserved LVEF with no wall motion abnormalities. No significant valvular heart disease. Aortic root mildly dilated. Ascending aorta normal size. Other Other High sensitivity troponin 611, 543, 573, 434 NT proBNP 8053 Diagram Lab Result Diagram: 04/25/25 0616 04/25/25 0616 Assessment/Plan Additional Plan This is a 60-year-old male who presented for chest pain and shortness for breath. The following is his problem list: NSTEMI High sensitivity troponin 611, 543, 573, 434 History of coronary artery disease status post CABG May 2023 with ARAUZ to LAD, sequential SVG to OM1/OM2, sequential SVG to PDA and posterolateral --on heparin drip. --recommend aspirin 81 mg daily --recommend high-intensity statin to keep LDL less than 55 --continue metoprolol --recommend stress test. Dyslipidemia LDL 64 --recommend high-intensity statin Acute kidney injury likely with underlying chronic kidney disease Creatinine 2022 was 1.32. Monitoring --management per hospitalist --consider IV fluids Possible heart failure with preserved ejection fraction NT proBNP 8052 Complaining of shortness for breath Echocardiogram with preserved EF and no wall motion abnormalities. --appears euvolemic at this time Diabetes mellitus type 2 Hemoglobin A1c 7.4 --management per hospitalist Obstructive sleep apnea --continue CPAP History of COPD --management per hospitalist Methamphetamine use disorder Patient plans to not use moving forward. Case discussed with Dr. Moni Schilling who is in agreement with this plan. Supervising MD Supervising Physician: ALYSSA Moeller NP Apr 25, 2025 16:19
[2025-04-25] MEDS ORDERED: metoprolol tartrate 1mg/ml inj IV PRN (16:40)
[2025-04-25] MEDS ORDERED: nitroGLYCERIN 0.4mg SUBLingual tab SL PRN (16:40)
[2025-04-25] MEDS ORDERED: aminophylline 500mg/20ml vial IV PRN (16:40)
--- NOTE | 2025-04-25 18:29 | CARDIOLOGY REPORT ---
APPROVED REPORT EXAM: Comprehensive 2D, Doppler, and color-flow Echocardiogram. Patient Location: 302 Blood Pressure: 116/70 mmHg Heart Rate: 74 bpm Indications Chest Pain Shortness of Breath Troponin: 543, 573 Coronary Artery Disease CABG x 5 Diabetes Hypertension MANAGER MONEY: Jenn Schilling MD Previous ECHO/NELLIE: 06/17/23, [facility], EF: 60 2D Dimensions LA Diam2.9 cm IVSd 1.0 (0.7-1.1cm) LVDd 5.6 cm PWd 1.1 (0.7-1.1cm) IVSs 1.1 (0.8-1.2cm) LVDs 4.1 (2.5-4.0cm) PWs 1.5 (0.8-1.2cm) LVOT Diameter 2.38 (1.8-2.4cm) LVEF(%) 50.1 (>50%) Ao Asc Diam.3.84 cm IVC 16.51 mmFS (%) 25.8 % SV 76.1 ml CO 5.3 L/min M-Mode Dimensions Aortic Root 4.23 (2.2-3.7cm) Aortic Cusp Exc 2.47 (1.5-2.0cm) MV EPSS 2.0 (<0.5cm) Aortic Valve AoV Peak Henry. 103.1 cm/s AoV VTI 17.8 cm AO Peak GR. 4.3 mmHg AO Mean GR. 3 mmHg LVOT VTI 14.27 cm LVOT Peak Henry. 74.0 cm/s KAELA(VTI)/BSA 3.55 cm2/m2 KAELA (VTI) 3.55 cm2 Mitral Valve MV E Velocity 58.0 cm/s MV Peak Gr. 2 mmHg MV DECEL TIME 328 ms MV A Velocity 76.8 cm/s MV PHT 80 ms E/A Ratio 0.8 MVA (PHT) 2.75 cm2 MV VMax67.2 cm/s TDI Lateral E' P. V10.64 cm/s E/Lateral E' 5.5 Tricuspid Valve TR P. Velocity 170 cm/s RAP ESTIMATE 10 mmHg TR Peak Gr. 12 mmHg RVSP 22 mmHg LEFT VENTRICLE Normal LV size and wall thickness. Overall systolic function is low normal. LVEF is 50-55%. RIGHT VENTRICLE RV is normal size and function. ATRIA The left atrium size is normal. AORTIC VALVE Trileaflet AV appears mildly sclerotic without stenosis. No insufficiency. MITRAL VALVE Mild mitral annular calcification without stenosis. Trace regurgitation. TRICUSPID VALVE The tricuspid valve is normal in structure with trace regurgitation. PULMONIC VALVE Pulmonic valve is grossly normal in structure. GREAT VESSELS Aortic root is mildly dilated. The ascending aorta is normal in size. The IVC is normal in si ze and collapses >50% with inspiration. PERICARDIUM Normal pericardium. No effusion. Other Information Study Quality: Adequate Conclusion Normal LV size and wall thickness. Overall systolic function is low normal. LVEF is 50-55%. RV is normal size and function. The left atrium size is normal. Trileaflet AV appears mildly sclerotic without stenosis. No insufficiency. Mild mitral annular calcification without stenosis. Trace regurgitation. The tricuspid valve is normal in structure with trace regurgitation. Normal pericardium. No effusion.
--- NOTE | 2025-04-25 19:27 | PROGRESS NOTE- Residence ---
Progress Note - Resident Providers to CC Resident Creating Document: JAQUELINE ARIAS RES ~ Antibiotic Timeout Antibiotic Ordered?: No Subjective Patient was seen at the bedside this morning while he was on BiPAP therapy for ROSITA during sleep. Cardiology will be seeing the patient for possible Stress test. Objective Vital Signs Date Time Temp Pulse Resp B/P (MAP) Pulse Ox O2 Delivery O2 Flow Rate FiO2 04/25/25 15:00 97.0 70 16 126/82 (97) 96 Room Air 04/25/25 04:00 30 04/24/25 22:00 0 Result Diagram: 04/25/25 0616 04/25/25 0616 Vitals were stable at the moment. On exam, General: Obese, Well alert, well oriented, not confused, not agitated, not in acute distress, well cooperated during the physical. HEENT: Conjunctive are pink, sclerae clear, no icterus, pupil is equal in both sides, reactive to light, no ear discharge, no pharyngeal erythema or an edema, mouth and lips are dry. Neck: Supple, no JVD, no lymphadenopathy and thyromegaly. Lungs:Equal air entry on both lungs, no additional sounds Heart: S1-S2 regular sinus rhythm and, regular rate, no gallops, no rubs, no murmurs Abdomen: No visible peristalsis, Bowel sounds present on auscultation, soft, nontender, no guarding, no rigidity, he showed me the extensive post fasciotmy scar up to his left ASIS area for his necrotizing fasciatitis hx which is still having gap in between. Extremities: No obvious deformities, generalized 1+ pitting edema bilaterally, capillary refill intact, able to wiggle toes both sides, peripheral pulsations are intact on both sides POST HOLE DIGGER: No focal neurological deficits, no motor and sensory weakness in all 4 extremities, could move all 4 extremities Musculoskeletal: No joint swelling, deformities, inflammations, and no scoliosis and back tenderness Skin: No active skin lesions and rashes Coagulation Studies Laboratory Tests Test 04/24/25 14:13 04/24/25 18:34 04/25/25 14:50 Prothrombin Time 10.3 SECONDS (9.0-12.0) INR International Normalized Ratio 1.0 INR Activated Partial Thromboplast Time 26 SECONDS (22-32) D-Dimer 0.68 MG/L FEU (0-0.50) H D-Dimer Comment APTT (Heparin Protocol) 40 SECONDS (45-60) L Coagulation Comments Assessment 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 T2DM, ROSITA, BMI 45.9, class three obesity, hypothyroidism, COPD, hx of post surgical paroxysmal AFib, hx of extensive perineal necrotizing fasciitis, DVT Legs in 1998, history of MRSA abscess, cellulitis presented with the acute on chronic shortness of breath, lightheadedness dizziness, chest pressure over 2-3 weeks. Plan Plan # NSTEMI # Dyspnea # Hx of CAD # s/p CABG x 5 # Hx of substance abuse (tobacco, amphetamine), currently back on Meth use 04/25/2025: Troponin trending down to 434 on IV heparin this morning -Cardiology was consulted, appreciate it - Continue heparin drip, NPO after midnight for tomorrow stress test -Continue med tx (aspirin beta justen, statin etc.) -2D echocardiogram on 04/25/2025 showed low normal systolic LV function, LVEF 50-55%, trace MR, TR, normal pericardium and no effusion. 04/24/2025:-EKG showed T inversion at V1-V2 -Unstable atypical angina -Trops- 611,543, 573 -CXR - Postoperative changes of the heart without evidence of acute intrathoracic process. -no hypoxia, no tachycardia -Well's criteria for Acute PE showed 1.5 low risk with hx of DVT, pending D Dimer to rule out acute PE in the setting of DVT hx in 1998 -elevated proBNP with no active signs and symptoms of fluid retention/CHF exacerbation at the moment, hold Lasix therapy -not anemic -currently on the IV Heparin -consulted with Cardiology, Cindi BEST. she will be seeing pt tomorrow, continue IV Heparin -med rec done, continue metoprolol, lisinopril, aspirin, atorvastatin, started Jardiance 10 daily and will consider to started Plavix if no procedure will be planned -pending 2D echocardiogram, last time echocardiogram in 2022 showed LVEF 55%, systolic function normal, mild concentric LV hypertrophy, normal LA, trace MR, TR, no pericardial effusion. -Drug screen urine is pending, and will consider for the substance navigation after that. -educated about the possible link between recent meth use and current ACS symtoms and possible consequences on the continuous use -continuous telemetry monitoring for possible AFib # REY possibly from the pre renal - renal tubular stasis 04/25/2025: Gradually trending down 04/24/2025:-BUN 37, creatinine 1.92, his baseline was around one- five years ago -order serum osmolality, urine osmolality, urine sodium and creatinine for possible etiology of REY -Hold IV Fluid therapy for now until Echo resulted # T2DM # HTN # HLD # class three obesity BMI 45.9 # ROSITA 04/25/2025: Random blood sugar show 104, continue OHA -optimal blood pressure control -currently on BiPAP therapy during sleep 04/24/2025:-pt stated that his last HbA1C a year ago was around 6, but in the record in 2022 was 11.2 -pending HbA1C TSH and Lipid profile -He refused to have the Insulin therapy as 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 acetaminophen/ IV morphine as needed, SL NTG for CP as prn Lines/tubes: PIV GI prophylaxis: Protonix Nutrition: NPO after midnight, heart healthy with 75 g carb controlled Prognosis: Guarded Disposition: Continue medical management GDMT, IV heparin, NPO after midnight, stress test tomorrow morning, PT eval and DC Plan, social support for his social situations. Resident MD attestation: Patient was seen, examined and discussed with attending , Dr. Whitney ARIAS MD Internal Medicine Resident, PGY2 [facility] Date of Service: Apr 25, 2025 Billing Provider: BECK MICHAEL MD,JAQUELINE, RES Apr 25, 2025 19:26
[2025-04-26] VITALS (17 sets, daily range): BP systolic 111–139; BP diastolic 59–85; PULSE 60–84; RESP 13–22; TEMP 97.3–97.6; O2SAT 94–99
[2025-04-26] MEDS: MESSAGE TO NURSING IV ONE ×3 (00:47→16:58)
[2025-04-26 07:38] LABS: BASOPHILS # (AUTO) 0.1 X10'3 (0-0.2); BASOPHILS % (AUTO) 1.1 % (0-1); EOSINOPHILS # (AUTO) 0.3 X10'3 (0-0.9); EOSINOPHILS % (AUTO) 6.2 % (0-6); HEMATOCRIT 43.5 % (42.0-52.0); HEMOGLOBIN 14.7 g/dl (14.0-17.9); LYMPHOCYTES # (AUTO) 1.2 X10'3 (1.1-4.8); LYMPHOCYTES % (AUTO) 23.9 % (21-51); MEAN CORPUSCULAR HEMOGLOBIN 31.4 PG (27.0-31.0); MEAN CORPUSCULAR HGB CONC 33.7 g/dL (33.0-36.5); MEAN CORPUSCULAR VOLUME 93.1 FL (78-98); MEAN PLATELET VOLUME 8.4 FL (7.4-10.4); MONOCYTES # (AUTO) 0.5 X10'3 (0-0.9); MONOCYTES % (AUTO) 10.9 % (2-12); NEUTROPHILS # (AUTO) 2.9 X10'3 (1.8-7.7); NEUTROPHILS % (AUTO) 57.9 % (42-75); PLATELET COUNT 187 X10'3 (140-440); RED BLOOD COUNT 4.67 X10'6 (4.70-6.10); RED CELL DISTRIBUTION WIDTH 13.2 % (11.5-14.5)
[2025-04-26 08:32] LABS: ALANINE AMINOTRANSFERASE 17 U/L (12-78); ALBUMIN/GLOBULIN RATIO 1.1 (1.1-1.5); ALKALINE PHOSPHATASE 94 IU/L (46-116); ANION GAP 9 (8-16); ASPARTATE AMINO TRANSFERASE 21 U/L (10-37); BILIRUBIN,TOTAL 0.4 MG/DL (0.1-1.0); BLOOD UREA NITROGEN 31 MG/DL (7-18); BUN/CREATININE RATIO 18.9 (10.0-20.0); CALCIUM 8.4 MG/DL (8.5-10.1); CHLORIDE 109 MMOL/L (99-107); CREATININE 1.64 MG/DL (0.60-1.10); GLUCOSE 166 MG/DL (70-104); MAGNESIUM 2.1 MG/DL (1.5-2.4); POTASSIUM 4.5 MMOL/L (3.5-5.1); SODIUM 145 MMOL/L (135-145); TOTAL CARBON DIOXIDE 27.2 MMOL/L (24-32); TOTAL PROTEIN 5.7 G/DL (6.4-8.2); eCRCL 54 ML/MIN; eGFR 43 ML/MIN
[2025-04-26] MEDS: regadenoson 0.4mg/5ml syringe IV PRN (11:16)
--- NOTE | 2025-04-26 14:04 | RADIOLOGY REPORT ---
Reason for study/Clinical History: To rule out ACS Comparison Study: None Myocardial Perfusion Study with SPECT Technique: The patient received an intravenous injection of 9.3 mCi of technetium-99m Sestamibi whi caprice at rest. After a short delay, SPECT tomographic images of the heart were obtained. The patient tiago mchugh went to the stress lab where they received an intravenous Lexiscan utilizing standard protocol. 36 mCi of technetium-99m Sestamibi was injected intravenously immediately after the start of the in fusion. Gated SPECT tomographic images of the heart were acquired and processed. Findings: Reversible defect is present in the anterior wall. Non reversible defect is present in the inferior wall. Left ventricular ejection fraction 38%. Impression: Reversible defect is present in the anterior wall which may represent acute ischemia. Non reversible defect in the inferior wall is present possibly representing chronic infarct versus ar tifact. Left ventricular ejection fracture is 38%.
--- NOTE | 2025-04-26 17:09 | PROGRESS NOTE ---
Progress Note Cardiology Providers to CC ~ Subjective Subjective Patient resting in bed. No current chest pain/pressure. Objective Result Diagram: 04/26/25 0707 04/26/25 0707 Objective General: Awake, alert, oriented. No apparent distress Neck: Supple. Normal range of motion. No JVD Respiratory: Lungs are clear and diminished to auscultation bilaterally. No respiratory distress. Chest: Normal shape and size. No accessory muscle use. Cardiovascular: Regular rate and rhythm. S1-S2. No murmur, gallop, rub. Gastrointestinal: Abdomen is soft, large. Nontender to palpation. Bowel sounds present. Extremities: No lower extremity edema, cyanosis or clubbing. He has compression stockings on Neurologic: Alert and oriented x4. Nonfocal Psychiatric: Normal mood and affect. Skin: Normal color. Warm and dry. Coagulation Studies Laboratory Tests Test 04/24/25 14:13 04/24/25 18:34 04/26/25 15:28 Prothrombin Time 10.3 SECONDS (9.0-12.0) INR International Normalized Ratio 1.0 INR Activated Partial Thromboplast Time 26 SECONDS (22-32) D-Dimer 0.68 MG/L FEU (0-0.50) H D-Dimer Comment APTT (Heparin Protocol) 45 SECONDS (45-60) Coagulation Comments Problem\Assessment\Plan Additional Plan This is a 60-year-old male who presented for chest pain and shortness for breath. The following is his problem list: NSTEMI High sensitivity troponin 611, 543, 573, 434 History of coronary artery disease status post CABG May 2023 with ARAUZ to LAD, sequential SVG to OM1/OM2, sequential SVG to PDA and posterolateral --d/c heparin --recommend aspirin 81 mg daily --recommend high-intensity statin to keep LDL less than 55 --continue metoprolol --Stress test with possible anterior reversibility. Reviewed with Dr. Jenn Schilling. Recommend medical mgt. --Start Plavix 75 mg daily. --Give rx for SL NTG --Outpatient f/up recommended. reviewed with pt. Dyslipidemia LDL 64 --recommend high-intensity statin Acute kidney injury likely with underlying chronic kidney disease Creatinine 2022 was 1.32. Monitoring --management per hospitalist --consider IV fluids Possible heart failure with preserved ejection fraction NT proBNP 8052 Complaining of shortness for breath Echocardiogram with preserved EF and no wall motion abnormalities. --appears euvolemic at this time Diabetes mellitus type 2 Hemoglobin A1c 7.4 --management per hospitalist Obstructive sleep apnea --continue CPAP History of COPD --management per hospitalist Methamphetamine use disorder Patient plans to not use moving forward. Case discussed with Dr. Moni Schilling who is in agreement with this plan. Recommend above mentioned med mgt and outpatient f/up. Supervising Physician: ALYSSA Moeller NP Apr 26, 2025 17:09
[2025-04-26] MEDS: clopidogrel 75mg tablet PO SCH (17:38)
--- NOTE | 2025-04-26 18:25 | PROGRESS NOTE- Residence ---
Progress Note - Resident Providers to CC Resident Creating Document: JAQUELINE ARIAS RES ~ Antibiotic Timeout Antibiotic Ordered?: No Subjective Patient underwent NM Lexiscan this morning. Objective Vital Signs Date Time Temp Pulse Resp B/P (MAP) Pulse Ox O2 Delivery O2 Flow Rate FiO2 04/26/25 18:13 16 04/26/25 11:31 76 135/70 98 Room Air 04/26/25 08:57 0 21 04/26/25 06:00 97.4 Result Diagram: 04/26/25 0707 04/26/25 0707 Vitals were stable at the moment. On exam, General: Obese, Well alert, well oriented, not confused, not agitated, not in acute distress, well cooperated during the physical. HEENT: Conjunctive are pink, sclerae clear, no icterus, pupil is equal in both sides, reactive to light, no ear discharge, no pharyngeal erythema or an edema, mouth and lips are dry. Neck: Supple, no JVD, no lymphadenopathy and thyromegaly. Lungs:Equal air entry on both lungs, no additional sounds Heart: S1-S2 regular sinus rhythm and, regular rate, no gallops, no rubs, no murmurs Abdomen: No visible peristalsis, Bowel sounds present on auscultation, soft, nontender, no guarding, no rigidity, he showed me the extensive post fasciotmy scar up to his left ASIS area for his necrotizing fasciatitis hx which is still having gap in between. 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 PROJECT COORDINATOR: No focal neurological deficits, no motor and sensory weakness in all 4 extremities, could move all 4 extremities Musculoskeletal: No joint swelling, deformities, inflammations, and no scoliosis and back tenderness Skin: No active skin lesions and rashes Coagulation Studies Laboratory Tests Test 04/24/25 14:13 04/24/25 18:34 04/26/25 15:28 Prothrombin Time 10.3 SECONDS (9.0-12.0) INR International Normalized Ratio 1.0 INR Activated Partial Thromboplast Time 26 SECONDS (22-32) D-Dimer 0.68 MG/L FEU (0-0.50) H D-Dimer Comment APTT (Heparin Protocol) 45 SECONDS (45-60) Coagulation Comments Assessment Assessment 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 T2DM, ROSITA, BMI 45.9, class three obesity, hypothyroidism, COPD, hx of post surgical paroxysmal AFib, hx of extensive perineal necrotizing fasciitis, DVT Legs in 1998, history of MRSA abscess, cellulitis presented with the acute on chronic shortness of breath, lightheadedness dizziness, chest pressure over 2-3 weeks. Plan Plan # NSTEMI # Dyspnea # Hx of CAD # s/p CABG x 5 # Hx of substance abuse (tobacco, amphetamine), currently back on Meth use 04/26/2025: Underwent NM Lexiscan showed Reversible defect is present in the anterior wall which may represent acute ischemia. Non reversible defect in the inferior wall is present possibly representing chronic infarct versus artifact. Left ventricular ejection fracture is 38%. -Cardiology seen the patient and recommended to continue metoprolol, high- intensity statin with goal LDL< 55, DAPT, SL NTG PRN, outpatient follow up. -Heparin was stopped. 04/25/2025: Troponin trending down to 434 on IV heparin this morning -Cardiology was consulted, appreciate it - Continue heparin drip, NPO after midnight for tomorrow stress test -Continue med tx (aspirin beta justen, statin etc.) -2D echocardiogram on 04/25/2025 showed low normal systolic LV function, LVEF 50-55%, trace MR, TR, normal pericardium and no effusion. 04/24/2025:-EKG showed T inversion at V1-V2 -Unstable atypical angina -Trops- 611,543, 573 -CXR - Postoperative changes of the heart without evidence of acute intrathoracic process. -no hypoxia, no tachycardia -Well's criteria for Acute PE showed 1.5 low risk with hx of DVT, pending D Dimer to rule out acute PE in the setting of DVT hx in 1998 -elevated proBNP with no active signs and symptoms of fluid retention/CHF exacerbation at the moment, hold Lasix therapy -not anemic -currently on the IV Heparin -consulted with Cardiology, Cindi BEST. she will be seeing pt tomorrow, continue IV Heparin -med rec done, continue metoprolol, lisinopril, aspirin, atorvastatin, started Jardiance 10 daily and will consider to started Plavix if no procedure will be planned -pending 2D echocardiogram, last time echocardiogram in 2022 showed LVEF 55%, systolic function normal, mild concentric LV hypertrophy, normal LA, trace MR, TR, no pericardial effusion. -Drug screen urine is pending, and will consider for the substance navigation after that. -educated about the possible link between recent meth use and current ACS symtoms and possible consequences on the continuous use -continuous telemetry monitoring for possible AFib # REY possibly from the pre renal - renal tubular stasis 04/25/2025: Gradually trending down 04/24/2025:-BUN 37, creatinine 1.92, his baseline was around one- five years ago -order serum osmolality, urine osmolality, urine sodium and creatinine for possible etiology of REY -Hold IV Fluid therapy for now until Echo resulted # T2DM # HTN # HLD # class three obesity BMI 45.9 # ROSITA 04/25/2025: Random blood sugar show 104, continue OHA -optimal blood pressure control -currently on BiPAP therapy during sleep 04/24/2025:-pt stated that his last HbA1C a year ago was around 6, but in the record in 2022 was 11.2 -pending HbA1C TSH and Lipid profile -He refused to have the Insulin therapy as 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 acetaminophen/ IV morphine as needed, SL NTG for CP as prn Lines/tubes: PIV GI prophylaxis: Protonix Nutrition: NPO after midnight, heart healthy with 75 g carb controlled Prognosis: Guarded Disposition: Continue medical management GDMT, Dr lipscomb Outpatient follow up plan, PT eval and DC Plan, social support for his social situations. Resident MD attestation: Patient was seen, examined and discussed with attending , Dr. Whitney ARIAS MD Internal Medicine Resident, PGY2 [facility] Date of Service: Apr 26, 2025 Billing Provider: BECK MICHAEL MD, TIN, RES Apr 26, 2025 18:25
[2025-04-26] MEDS: diphenhydrAMINE 25mg capsule PO PRN (20:00)
[2025-04-27 02:00] VITALS: BP 102/70; PULSE 67; RESP 16; TEMP 97.6; O2SAT 98
[2025-04-27 03:41] VITALS: RESP 18
[2025-04-27 06:00] VITALS: BP 121/72; PULSE 57; RESP 15; TEMP 97.8; O2SAT 97
[2025-04-27 07:17] LABS: BASOPHILS # (AUTO) 0.1 X10'3 (0-0.2); EOSINOPHILS # (AUTO) 0.3 X10'3 (0-0.9); EOSINOPHILS % (AUTO) 5.6 % (0-6); HEMATOCRIT 44.4 % (42.0-52.0); LYMPHOCYTES # (AUTO) 1.1 X10'3 (1.1-4.8); LYMPHOCYTES % (AUTO) 22.4 % (21-51); MEAN CORPUSCULAR HEMOGLOBIN 31.6 PG (27.0-31.0); MEAN CORPUSCULAR HGB CONC 33.8 g/dL (33.0-36.5); MEAN CORPUSCULAR VOLUME 93.4 FL (78-98); MEAN PLATELET VOLUME 8.6 FL (7.4-10.4); MONOCYTES # (AUTO) 0.5 X10'3 (0-0.9); MONOCYTES % (AUTO) 10.4 % (2-12); NEUTROPHILS % (AUTO) 60.6 % (42-75); PLATELET COUNT 189 X10'3 (140-440); RED BLOOD COUNT 4.76 X10'6 (4.70-6.10); RED CELL DISTRIBUTION WIDTH 13.3 % (11.5-14.5); WHITE BLOOD COUNT 4.9 X10'3 (4.5-11.0)
[2025-04-27 07:37] LABS: ALANINE AMINOTRANSFERASE 19 U/L (12-78); ALBUMIN 2.9 G/DL (3.4-5.0); ALBUMIN/GLOBULIN RATIO 0.8 (1.1-1.5); ALKALINE PHOSPHATASE 91 IU/L (46-116); ANION GAP 6 (8-16); ASPARTATE AMINO TRANSFERASE 21 U/L (10-37); BILIRUBIN,TOTAL 0.4 MG/DL (0.1-1.0); BLOOD UREA NITROGEN 30 MG/DL (7-18); BUN/CREATININE RATIO 18.5 (10.0-20.0); CALCIUM 8.9 MG/DL (8.5-10.1); CHLORIDE 108 MMOL/L (99-107); CREATININE 1.62 MG/DL (0.60-1.10); GLUCOSE 156 MG/DL (70-104); POTASSIUM 4.9 MMOL/L (3.5-5.1); SODIUM 144 MMOL/L (135-145); TOTAL CARBON DIOXIDE 30.2 MMOL/L (24-32); TOTAL PROTEIN 6.5 G/DL (6.4-8.2); eCRCL 55 ML/MIN; eGFR 43 ML/MIN
[2025-04-27 08:00] VITALS: RESP 15; O2SAT 97
[2025-04-27] MEDS ORDERED: NITR0.4T51 SL (08:06)
[2025-04-27] MEDS ORDERED: CLOP75TA34 PO (08:06)
[2025-04-27 08:18] VITALS: BP_SYST 122; PULSE 60
--- NOTE | 2025-04-27 12:53 | DISCHARGE SUMMARY-Residence ---
Discharge Summary Providers to CC Resident Creating Document: JAQUELINE ARIAS, RES ~ Discharge Summary Admission Diagnosis: Possible CHF exacerbation w/ Hx of CAD CABG Hospital Course DATE OF ADMISSION: 04/24/2025 DATE OF DISCHARGE: 04/27/2020 Discharge Diagnosis\Comment: # NSTEMI # Dyspnea # Hx of CAD # s/p CABG x 5 vessels (Coronary artery bypass May 2023 ARAUZ to LAD, sequential SVG to OM1/OM2, sequential SVG to PDA and posterolateral branch) # Hx of substance abuse (tobacco, amphetamine), currently back on Meth use # REY possibly from the pre renal - renal tubular stasis # T2DM # HTN # HLD # class three obesity BMI 45.9 # ROSITA Operations\Procedures: NM cardiac Lupis stress test Consultants: Dr Shauna Schilling, Cardiology team Complications: None Condition on DC: Stable New Medications: Clopidogrel Bisulfate (Clopidogrel) 75 Mg Tablet 75 MG PO DAILY for 30 Days, #30 TAB Do not stop medication unless instructed by prescriber. Nitroglycerin SL* (Nitrostat SL*) 0.4 Mg Tablet 0.4 MG SL Q5MIN PRN for chest pain for 14 Days, #14 TAB Continued Medications: Aspirin (Ecotrin*) 81 Mg Tablet. 1 TAB PO DAILY for 30 Days, #30 TAB Atorvastatin Calcium (Atorvastatin Calcium) 40 Mg Tablet 1 TAB PO HS Glimepiride* (Amaryl*) 4 Mg Tablet 1 TAB PO BID Levothyroxine Sodium (Levothyroxine Sodium) 75 Mcg Tablet 1 TAB PO QAM TAKE WITH 200 MCG LEVOTHYROXINE FOR TOTAL OF 275 MCG Levothyroxine Sodium (Levothyroxine Sodium) 200 Mcg Tablet 1 TAB PO QAM TAKE WITH 75 MCG LEVOTHYROXINE FOR TOTAL OF 275 MCG Lisinopril (Lisinopril) 20 Mg Tablet 1 TAB PO DAILY for 30 Days, #30 TAB Magnesium (Magnesium Oxide) 200 Mg Tablet 1 TAB PO DAILY for 30 Days, #30 TAB 0 Refills Magnesium Oxide (Magnesium Oxide) 400 Mg Tablet 1 TAB PO DAILY Metformin HCl (Metformin HCl) 1,000 Mg Tablet 1 TAB PO Q12H for 30 Days, #60 TAB Metformin* (Glucophage*) 850 Mg Tablet 1 TAB PO TIDWM, TAB Metoprolol Tartrate (Lopressor tablet) 25 Mg Tablet 25 MG PO Q12H for 30 Days, #60 TAB 2 Refills Hold for SBP below 100mm Hg Hold for Heart Rate below 60. 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 T2DM, ROSITA, BMI 45.9, class three obesity, hypothyroidism, COPD, hx of post surgical paroxysmal AFib, hx of extensive perineal necrotizing fasciitis, DVT Legs in 1998, history of MRSA abscess, cellulitis presented with the acute on chronic shortness of breath, lightheadedness dizziness, chest pressure over 2-3 weeks. Hospital course: Patient was admitted for his EKG changes with T inversion at V1-V2 along with s erial Trops- 611,543, 573 and 434 in the presence of Unstable atypical angina. CXR - Postoperative changes of the heart without evidence of acute intrathoracic process. There were no hypoxia, no tachycardia Well's criteria for Acute PE showed 1.5 low risk with hx of DVT and his D Dimer was mildly dilated with 0.68. He was put on IV Heparin cardiac dose for two days with continuous telemetry monitoring. His 2D echocardiogram on 04/25/2025 showed low normal systolic LV function, LVEF 50-55%, trace MR, TR, normal pericardium and no effusion. His urine toxic screen showed positive for methamphetamine for which he was educated about the possible link between recent meth use and current ACS symtoms and possible consequences on the continuous use. And his Lupis scan showed Reversible defect is present in the anterior wall which may represent acute ischemia. Non reversible defect in the inferior wall is present possibly representing chronic infarct versus artifact. Left ventricular ejection fracture is 38%. The cardiology team was requested for the consultation. Cardiology recommended for medical therapy ( metoprolol, high-intensity statin with goal LDL< 55, DAPT, SL NTG PRN) with outpatient monitoring follow up. For his blood sugar control, he refused to have insulin injection during hospitalization and wanted to continue his OHA (metformin and glimepiride). His ROSITA was treated with Bipap therapy during sleep. DVT prophylaxis was achieved with IV heparin 5000 units b.i.d. and GI prophylaxis was done with Protonix on admission. All of his labs were reviewed WNL with WBC 4.9, hemoglobin 15, hematocrit 44.4, platelet count 189, serum sodium 144, potassium 4.9, chloride 109, BUN 30, creatinine 1.62, RBS 156, HGB A1c 7.4, triglyceride 117, total cholesterol 132, LDL 64, HDL 42, TSH 5.42. All of his vitals were stable at the moment with temp 97.8 F, [place] 57, RR 15/minute, BP 120/72 mm Hg, pulse oximetry 97% on room air. All of his questions and concerns were addressed with the best knowledge of erectile before he was discharged today. On exam, General: Obese, Well alert, well oriented, not confused, not agitated, not in acute distress, well cooperated during the physical. HEENT: Conjunctive are pink, sclerae clear, no icterus, pupil is equal in both sides, reactive to light, no ear discharge, no pharyngeal erythema or an edema, mouth and lips are dry. Neck: Supple, no JVD, no lymphadenopathy and thyromegaly. Lungs:Equal air entry on both lungs, no additional sounds Heart: S1-S2 regular sinus rhythm and, regular rate, no gallops, no rubs, no murmurs Abdomen: No visible peristalsis, Bowel sounds present on auscultation, soft, nontender, no guarding, no rigidity, he showed me the extensive post fasciotmy scar up to his left ASIS area for his necrotizing fasciatitis hx which is still having gap in between. 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 -please follow up with the PCP and Dr. Shauna Schilling Cardiology at the outpatient setting for further management including CBC CMP and other necessary lab check, and outpatient monitoring advanced at Dr. Schilling's cardiology office. -medication compliance including double antiplatelet therapy and anti-lipid agents are importance -strictly control blood glucose and blood pressure were advised -heart healthy lifestyle with moderate regular exercises place an important role to modify the risk factors for cardiovascular events in the future -weight losing plan and sleep study with CPAP/BiPAP therapy at night is important Resident MD attestation: Patient was seen, examined and discussed with attending MD, Dr. Whitney ARIAS MD Internal Medicine Resident, PGY2 [facility] *Problems/Diagnosis: (1) Unstable angina Status: Resolved Total Time Spent on D/C: > 30 Minutes Date of Service: Apr 27, 2025 Billing Provider: BECK MICHAEL MD, TIN, RES Apr 27, 2025 12:52
== END 2025-04-27 10:59 | disposition home or self-care (01) | DRG 280 ==
LOC: ER 14:01 → ED HOLD 16:43 → PCU 3S 04-25 02:20
PROVIDERS: ADMIT Family Medicine; ATTEND Family Medicine
PROC: 5A09357 Assistance with Respiratory Ventilation, Less than 24 Consecutive Hours, Continuous Positive Airway Pressure (ICD-10-PCS; principal; 2025-04-25)
PROC: 5A09357 Assistance with Respiratory Ventilation, Less than 24 Consecutive Hours, Continuous Positive Airway Pressure (ICD-10-PCS; 2025-04-26)
PROC: 4A02XM4 Measurement of Cardiac Total Activity, External Approach (ICD-10-PCS; 2025-04-26)
PROC: 3E033HZ Introduction of Radioactive Substance into Peripheral Vein, Percutaneous Approach (ICD-10-PCS; 2025-04-26)
DX: I21.4 Non-ST elevation (NSTEMI) myocardial infarction (principal); I50.33 Acute on chronic diastolic (congestive) heart failure; N17.0 Acute kidney failure with tubular necrosis; I13.0 Hypertensive heart and chronic kidney disease with heart failure and stage 1 through stage 4 chronic kidney disease, or unspecified chronic kidney disease; Z59.00 Homelessness unspecified; Z68.42 Body mass index [BMI] 45.0-49.9, adult; E11.22 Type 2 diabetes mellitus with diabetic chronic kidney disease; N18.9 Chronic kidney disease, unspecified; E66.813 Obesity, class 3; I25.110 Atherosclerotic heart disease of native coronary artery with unstable angina pectoris; G47.33 Obstructive sleep apnea (adult) (pediatric); E03.9 Hypothyroidism, unspecified; E78.5 Hyperlipidemia, unspecified; F15.10 Other stimulant abuse, uncomplicated; I48.91 Unspecified atrial fibrillation; J44.9 Chronic obstructive pulmonary disease, unspecified; Z86.718 Personal history of other venous thrombosis and embolism; Z87.891 Personal history of nicotine dependence; Z95.1 Presence of aortocoronary bypass graft
CPT/HCPCS: 36415; 71045; 78452; 80048; 80053; 80061; 80305; 80320; 81001; 82570; 83036; 83735; 83880; 83930; 83935; 84300; 84443; 84484; 85025; 85379; 85610; 85730; 87081; 93005; 93017; 93306; 94660; 94760; 96374; 99291; A6258; A9500; G0378; J1644; J1938; J2270; J2785; Q0163